=== PATIENT | male | born 1950 | race Caucasian/White ===

== ENCOUNTER 2016-05-07 06:04 | Inpatient (IN) ==
[2016-05-07] MEDS ORDERED: CeFAZolin Pre 2,000 MG/100 ML 2,000 MG/100 ML BAG IVPB ONE (06:22)
[2016-05-07] MEDS ORDERED: Ringers Solution, Lactated 1,000 ML IVC SCH (06:30)
--- NOTE | 2016-05-07 07:06 | Anesthesia Evaluation PreOp ---
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: CVA (mini stroke) Other Medical History: Renal (R renal atrophy) Anesthesia History: No Prior Anesthetic Complications Alcohol Use: rarely Drug use: none Medications and Allergies Allopurinol [Zyloprim 300 MG] 300 mg PO DAILY 07/16/15 [History] Cyanocobalamin (Vitamin B-12) [Vitamin B-12] 1,000 mcg PO DAILY 07/16/15 [ History] Cyclobenzaprine [Flexeril] 10 mg PO TID PRN 07/16/15 [History] Gabapentin [Neurontin] 800 mg PO BID 07/16/15 [History] Lisinopril [Zestril] 10 mg PO DAILY 07/16/15 [History] Meclizine [Antivert] 25 mg PO DAILY PRN 07/16/15 [History] Metoprolol Tartrate 100 mg PO BID 07/16/15 [History] Folic Acid 1 tab PO DAILY #30 tablet 11/21/15 [Rx] Rivaroxaban [Xarelto] 20 mg PO DAILY 03/05/16 [History] Aspirin [Lo-Dose Aspirin EC] 81 mg PO DAILY 04/16/16 [History] Gabapentin [Neurontin] 1,600 mg PO HS 04/30/16 [History] Potassium Chloride [K-Tab ER] 10 meq PO DAILY 04/30/16 [History] Allergies No Known Allergies Allergy (Verified 04/30/16 07:42) - Meds/Allergy Pre-op Review Medications Reviewed: Yes Allergies Reviewed: Yes Beta Blockers on Current Med List: Yes If Beta Blockers taken, Date/Time (Last Dose taken): 05-06-2016 metoprolol 23:00 Anesthesia Results - Labs Laboratory Tests 04/16/16 04/27/16 04/27/16 10:20 14:30 14:30 WBC 8.9 Hgb 11.8 L Hct 37.3 L Plt Count 288 Sodium 138 Potassium 4.1 Chloride 104 Carbon Dioxide 28 BUN 13 Creatinine 1.11 Est GFR ( Amer) > 60 Est GFR (Non-Af Amer) > 60 BUN/Creatinine Ratio 12 Calculated Osmolality 289 - Imaging EKG: report reviewed, image reviewed (atrial pacing) Additional studies: TTE: LVEF 55-60% no sign valvular disease Anesthesia Exam Last Vital Signs Temp 98.6 F 05/07/16 06:22 Pulse 70 05/07/16 06:22 Resp 18 05/07/16 06:22 BP 150/80 05/07/16 06:22 Pulse Ox 97 05/07/16 06:22 Weight: 112 kg NPO (# of Hours): >> 8 hrs - HEENT Pupil (Motor): Pupils equal, EOMI Mallampati: IV Teeth: Poor dentition Oral Opening: Greater than 3 - PAPER PRODUCTION ENGINEER LOC: Oriented PAPER PRODUCTION ENGINEER Motor: Normal RUE, Normal LUE, Normal RLE, Normal LLE, Normal Face - Cardiac Rhythm: Regular Murmur: None - Pulmonary Breath Sounds: bilateral Clear Respiratory Effort: Symmetrical Anesthesia Assess/Plan ASA Score: 3 Modified Jose E Scale for Level of Consciousness: Cooperative, oriented, and tranquil Anesthetic Plan: MAC Monitoring Plan: Standard Monitors Recovery Plan: PACU
[2016-05-07] MEDS ORDERED: Lidocaine -MPF 2% 2 ML VIAL ONE (07:13)
[2016-05-07] MEDS ORDERED: Propofol 500 MG/50 ML INFUS..BTL ONE (07:13)
[2016-05-07] MEDS ORDERED: *HR* FentaNYL (PF) 100 MCG/2 ML VIAL ONE (07:13)
[2016-05-07] MEDS ORDERED: *HR* Midazolam HCl 2 MG/2 ML VIAL ONE (07:13)
--- NOTE | 2016-05-07 07:18 | History & Physical Report ---
Date of Encounter: 05/07/16 Time of Encounter: 07:17 24 Hour HP Update - Instructions Instructions: If the History and Physical is less than 30 days old and was completed prior to A.M. admission and or procedure and has NOT been updated on calendar day of procedure please complete this update prior to performing procedure. - Update Patient reports changes in Medical Condition: No Changes in assessment/condition: No Changes in Medication: No Preop tests/diagnostics Reviewed: No Pre-Op MRSA Screen: Negative Surgery Remains Indicated: Yes Consent for Planned Operative Procedure(s) Verified: Yes
[2016-05-07] MEDS ORDERED: Lidocaine 1% 20 ML MDV ID ONE (07:20)
[2016-05-07] MEDS ORDERED: Bupivacaine/Clonidine Syringe 1 EACH SYRINGE ONE (07:29)
[2016-05-07] MEDS ORDERED: Lidocaine 1% 20 ML MDV ONE (07:48)
[2016-05-07] MEDS ORDERED: Neosporin OINT 15 GM TUBE TP ONE (09:02)
[2016-05-07] MEDS: Gabapentin 400 MG CAPSULE PO SCH ×3 (11:28→22:38)
[2016-05-07] MEDS: *HR* Rivaroxaban 10 MG TABLET PO SCH (11:29)
[2016-05-07] MEDS: Metoprolol 100 MG TABLET PO SCH ×2 (11:29→22:36)
[2016-05-07] MEDS: Aspirin Enteric Coated 81 MG Tablet PO SCH (11:29)
[2016-05-07] MEDS: Cyanocobalamin (B-12) 1,000 MCG TABLET PO SCH (11:29)
--- NOTE | 2016-05-07 11:34 | Anesthesia Evaluation Post Op ---
Date of Encounter: 05/07/16 Time of Encounter: 09:30 - Vital Signs Vital Signs: Last Vital Signs Temp 97.6 F 05/07/16 10:45 Pulse 70 05/07/16 11:30 Resp 16 05/07/16 11:30 BP 167/98 05/07/16 11:30 Pulse Ox 100 05/07/16 11:30 - Lungs Lungs: Clear Ascult./Percussion - Airway Airway: Non-obstructed - Cardiovascular Regular Rate, Baseline Rhythm - Mental Status Mental Status: Alert & Oriented, Answers Appropriately - Pain Pain Scale: 1 - Nausea Vomiting Nausea Vomiting: Not Present - Hydration Hydration: NPO - Discharge PostOp Status: Transfer Patient to floor
--- NOTE | 2016-05-07 17:06 | Orthopedic Operative Note ---
Date of procedure: 05/07/16 Pre-op diagnosis: #1 hammertoe deformity #2 left foot. No deformity of metatarsal #2 left Post-op diagnosis: same Procedure: 05/07/16 17:05 #1 correction of hammertoe with external fixation/K wire #2 left foot #2 metatarsal osteotomy/completed resection #2 metatarsal left foot Implants: #1:0.62 smooth K wire Complications: None Anesthesia: MAC, local Local Anesthetics: 0.25% Sensorcaine HCL SubQ (cc) Surgeon: Tomas Garcia Estimated blood loss (cc): 5 Tourniquet Time (Minutes): 0 Specimen: Bone fragments Condition: stable Disposition: floor Procedure in Detail: 05/07/16 17:06 Indications for and Details in summary the procedure: Mr. Garcia has been afflicted with a persistent chronic foot ulcer beneath the second metatarsal left foot for several years with exhaustive conservative therapy to no avail. This is been complicated by a rigid hammertoe and prominent second metatarsal. We have discussed the risks versus the benefits as well as alternatives to surgical intervention in detail. Risks include but not limited to infection, bleeding, pain, need for further surgery, DVT, blood clots, complications from blood clots, failure of procedure to produce desired results. Patient able to has questions about planned procedure those questions are answered to satisfaction. Patient was brought to the surgical suite. A sign in procedure was performed. Patient was transferred to the surgical table and positioned properly safely and securely. The left foot was elevated on a foam block. No tourniquet was used. Anesthetic timeout taken. Left ankle was prepped with alcohol 3 times in a modified ankle block carried out without difficulty or complication. The left foot was then prepped and draped in usual sterile manner. Surgical timeout was taken. A standard dorsal linear incision was carried out beginning at the middle phalanx brought midline across the proximal phalangeal joint to the level of the MTPJ and then obliquely lazy S fashion and then onto, the second metatarsal distally. Continued sharp dissection down to the metatarsophalangeal joint where a transverse capsulotomy was carried out. It was noted that the second toe/base of proximal phalanx was dorsally dislocated and overriding the distal aspect of the second metatarsal. After meticulous dissection of the soft tissue away from the distal aspect of the second metatarsal osteotomy was performed dorsal to plantar. Attempts to remove the distal aspect of the second metatarsal proved fruitless because of the base of proximal phalanx was unable to be mobilized adequately. At that juncture the base of proximal phalanx was resected dorsal plantar fashion we then resected the distal aspect of the second distal metatarsal without difficulty or complication. The wound was flushed with copious amounts sterile saline. The head of the proximal phalanx was then resected dorsal plantar fashion. That juncture2 K wire was driven through the middle and distal phalanx exiting the distal pulp of the toe it was then retrograded through the proximal phalanx and purchased and driven into the distal aspect of second metatarsal. Prior to pinning all osseous surfaces were palpated and found to be smooth without irregularities. Finding no bone chips or debris, the bone was then closed in routine fashion. The capsular structures were closed with 3-0 Vicryl subcutaneous tissue 3-0 Vicryl and skin repaired with 3-0 Prolene the pin was bent and cut appropriate angles. Capillary refill time is less than 3 seconds after completion of the procedure. Before closure the wound was sprayed with PRP. Wound was dressed with Adaptic 4 x 4's and Kerlix. Patient tolerated the procedure well was sent holding room in good condition with vital signs stable and then proceeding to the floor for further intravenous antibiotics and anticoagulant therapy postoperatively. Patient will need several weeks of postoperative rehabilitation.
[2016-05-08] MEDS: ceFAZolin 1,000 MG in D5% in Water (Mini-Bag+) 100 ML IVPB SCH ×3 (00:49→15:54)
[2016-05-08] MEDS: *HR* Rivaroxaban 10 MG TABLET PO SCH (07:47)
[2016-05-08] MEDS: Cyanocobalamin (B-12) 1,000 MCG TABLET PO SCH (07:47)
[2016-05-08] MEDS: Metoprolol 100 MG TABLET PO SCH ×2 (07:47→22:24)
[2016-05-08] MEDS: Aspirin Enteric Coated 81 MG Tablet PO SCH (07:47)
[2016-05-08] MEDS: Folic Acid 1 MG TABLET PO SCH (07:47)
[2016-05-08] MEDS: Gabapentin 400 MG CAPSULE PO SCH ×3 (07:48→22:25)
--- NOTE | 2016-05-08 13:25 | Podiatry Progress Note ---
Date of Encounter: 05/07/16 Time of Encounter: 11:00 - Assessment and Plan (1) Hammertoe of second toe of left foot Current Visit: Yes Status: Acute Dressing removed and site assessed Dressing saturated with serosang fluid to dorsal aspect. No acute drainage noted at this time Incision line intact without clinical signs of infection Cleansed with saline- betadine applied to dry slight maceration bulk 4x4 placed sub metatarsal heads to allow for proper alignment of toes during ambulation adaptic, 4x4 and kerlex applied to surgical site Patient to wear CAM boot when out of bed Patient may go to [facility] today when able to obtain placement SW to determine placement Patient will follow up in clinic in [address] Garcia or twist tester Please call with any fevers, chills, n/v or flu like symptoms Order for norco 5/325 as needed every 6 hours for pain control. (2) Foot ulcer Current Visit: Yes Status: Acute Qualifiers: Laterality: left Non-pressure ulcer stage: unspecified non-pressure ulcer stage Qualified Code(s): L97.529 - Non-pressure chronic ulcer of other part of left foot with unspecified severity Subjective Interval history: Patient day one post op #1 correction of hammertoe with external fixation/K wire #2 left foot #2 metatarsal osteotomy/completed resection #2 metatarsal left foot. Patient resting comfortably in bed at this time. Denies any issues. States he has occasional pain and pain to arch of foot when wearing boot. States he was up to the chair for a while this morning. Denies any fevers chills n/v or flu like symptoms. Denies any calf pain Objective - Vital Signs Vital Signs: Vital Signs Temp Pulse Resp BP Pulse Ox 05/08/16 11:01 98.2 F 70 20 150/87 97 05/08/16 06:41 98.3 F 70 20 143/85 93 L 05/08/16 04:00 99.2 F 76 18 162/77 95 05/08/16 00:00 98.7 F 70 18 178/90 96 05/07/16 20:28 97.6 F 70 17 165/85 95 05/07/16 15:16 98.3 F 74 16 147/85 99 Intake and Output 05/07/16 05/08/16 05/08/16 23:59 07:59 15:59 Intake Total 300 / 300 550 / 550 240 / 240 Output Total 275 / 275 250 / 250 350 / 350 Balance 25 / 25 300 / 300 -110 / -110 Intake: IV Fluids 100 / 100 Ancef 1,000 MG In 100 / 100 Dextrose 5% (Minibag+) 100 ML 100 ML @ 200 mls/ hr IVPB Q8HR [facility] Rx#: [id number] Oral 300 / 300 450 / 450 240 / 240 Output: Urine 275 / 275 250 / 250 350 / 350 Other: Meal Breakfast Percent of Meal Consumed 100% # Voids 1 - Exam Exam: Podiatry General Exam: General appearance: alert awake oriented X 3. Calm and pleasant, no acute distress.. Vascular: Pedal pulses +1/4 DP/PT , No evidence of cyanosis, pallor or rubor, Edema graded at 1+/4, Skin Temperature warm, No calf pain with manual compression. capillary refill time is immediate to digits. Neurologic: Sensation intact with moderate touch to foot. . Patient has neuropathic pain complaints Postop Exam: S/P Hemmertoe correction toe #2 left foot toe #1 has been surgically amputated Sutures intact to incision line, no signs of dehiscence.Mild amount of maceration surrounding surgical line. No open area, scant sero sang drainage, no odor, mild erythema, no streaking. Minimal edema. No pain with palpation. Cap refill <3 seconds. - VTE Reasons for not Prescribing Prophylaxis: Not indicated-Anticoagulated or INR therapeutic Documentation of Mechanical Device: Intermittent pneumatic compression device Consult Discharge Plan - Plan Referrals: Katarina Georges DO [Primary Care Provider] -
--- NOTE | 2016-05-08 13:38 | Physician Discharge Referral ---
ExtendedCare Referral Info Transfer To: [facility] Provider in Charge: Radha Provider in Charge after Transfer: PCP Institutional Level of Care: Skilled - Diagnosis (1) Foot ulcer Status: Acute Expected Duration of Placement: 3 weeks Prognosis: Good Aware of Diagnosis: Patient Aware of Prognosis: Patient - Transfer Medications Home Medications: Allopurinol [Zyloprim 300 MG] 300 mg PO DAILY 07/16/15 [History] Cyanocobalamin (Vitamin B-12) [Vitamin B-12] 1,000 mcg PO DAILY 07/16/15 [ History] Cyclobenzaprine [Flexeril] 10 mg PO TID PRN 07/16/15 [History] Gabapentin [Neurontin] 800 mg PO BID 07/16/15 [History] Lisinopril [Zestril] 10 mg PO DAILY 07/16/15 [History] Meclizine [Antivert] 25 mg PO DAILY PRN 07/16/15 [History] Metoprolol Tartrate 100 mg PO BID 07/16/15 [History] Folic Acid 1 tab PO DAILY #30 tablet 11/21/15 [Rx] Rivaroxaban [Xarelto] 20 mg PO DAILY 03/05/16 [History] Aspirin [Lo-Dose Aspirin EC] 81 mg PO DAILY 04/16/16 [History] Gabapentin [Neurontin] 1,600 mg PO HS 04/30/16 [History] Potassium Chloride [K-Tab ER] 10 meq PO DAILY 04/30/16 [History] Allergies/Adverse Reactions: Allergies No Known Allergies Allergy (Verified 04/30/16 07:42) - Respiratory Orders Smoking Cessation: Smoking cessation has been advised. For more information, call the [place] Tobacco Quit Line at 4-818-ZJBQ-NOW. - Mobility Orders Ambulate - Rehabiliation Orders Rehab Potential: Fair Rehab Orders: Evaluation for Physical Therapy, Evaluation for Occupational Therapy - Treatments List/Other: Cleanse surgical wound with soap and water daily apply betadine to pin and incision cover/dress with adaptic 4x4 and Kerlix daily Use cast boot to ambulate at all time. - Diet Orders Regular CERTIFICATION: I certify that the transfer of the above named patient to an Extended Care Facility is necessary for the continuing treatment of the diagnosis listed. The above information is true and accurate reflection of patient's current condition. Confidential - Redisclosure prohibited without a patient's written consent.
--- NOTE | 2016-05-08 15:28 | Discharge Summary ---
Date of Encounter: 05/08/16 Time of Encounter: 14:15 - Discharge Diagnosis (1) Hammertoe of second toe of left foot Priority: Primary Status: Acute (2) Foot ulcer Priority: Primary Status: Acute Qualifiers: Laterality: left Non-pressure ulcer stage: unspecified non-pressure ulcer stage Qualified Code(s): L97.529 - Non-pressure chronic ulcer of other part of left foot with unspecified severity - Discharge Medications Prescriptions: HYDROcodone/Acet 5/325 mg [[place] 5-325 mg] 1 tab PO Q6HR PRN #30 tablet PRN Reason: Breakthrough Pain Home Medications: Allopurinol [Zyloprim 300 MG] 300 mg PO DAILY 07/16/15 [History] Cyanocobalamin (Vitamin B-12) [Vitamin B-12] 1,000 mcg PO DAILY 07/16/15 [ History] Cyclobenzaprine [Flexeril] 10 mg PO TID PRN 07/16/15 [History] Gabapentin [Neurontin] 800 mg PO BID 07/16/15 [History] Lisinopril [Zestril] 10 mg PO DAILY 07/16/15 [History] Meclizine [Antivert] 25 mg PO DAILY PRN 07/16/15 [History] Metoprolol Tartrate 100 mg PO BID 07/16/15 [History] Folic Acid 1 tab PO DAILY #30 tablet 11/21/15 [Rx] Rivaroxaban [Xarelto] 20 mg PO DAILY 03/05/16 [History] Aspirin [Lo-Dose Aspirin EC] 81 mg PO DAILY 04/16/16 [History] Gabapentin [Neurontin] 1,600 mg PO HS 04/30/16 [History] Potassium Chloride [K-Tab ER] 10 meq PO DAILY 04/30/16 [History] Aspirin Enteric Coated [Aspirin EC] 81 mg PO DAILY tablet. 05/08/16 [Rx] HYDROcodone/Acet 5/325 mg [[place] 5-325 mg] 1 tab PO Q6HR PRN #30 tablet [Rx] Allergies/Adverse Reactions: Allergies No Known Allergies Allergy (Verified 04/30/16 07:42) Procedures and tests throughout hospitalization: #1 correction of hammertoe with external fixation/K wire #2 left foot #2 metatarsal osteotomy/completed resection #2 metatarsal left foot on 05/08/2016 per - Impressions ITS Impressions Fluoroscopy 05/07/16 08:48 IMPRESSION: Intraprocedural fluoroscopic spot images as above. See separate procedure report for more information. D/ / Jack Osorio MD / Jack Osorio MD Interpreting Provider: Jack Osorio MD Foot X-Ray 05/07/16 09:49 IMPRESSION: Postsurgical changes from partial resection osteotomy of the 2nd metatarsal and 2nd proximal phalanx with pinning of the 2nd metatarsal through the distal phalanx. No radiographic evidence of acute complication. D/ / 05/07/2016 10:38:55 Fannie Harris MD / jailyn Interpreting Provider: Fannie Harris MD Date of admission: 05/07/16 10:22 Primary care physician: Teena Lutz Consults: 05/07/16 13:06 Consult to Event Set Up Specialist [CONS] Routine Reason for SW Consult: [facility] 05/07/16 13:39 Consult to Physical Therapy [CONS] Routine Comment: WB JACIEL WITH TALL CAST BOOT FOR STABILIZATION OT [Consult to Occupational Therapy] [CONS] Routine Comment: WB JACIEL WITH TALL CAST BOOT FOR STABILAZTION Discharging clinician: Katarina Reed Anticipated date of discharge: 05/08/16 - Patient Status Disposition: Transfer SNF Condition: Good Functional capacity at discharge: uses cane/walker Overall status at discharge: patient is progressing back to baseline - Discharge Instructions Follow Up With: Tomas Renee [Non-Partnered Physician] - 05/13/16 8:30 am (IN [facility]ARE [facility] ) Additional Instructions: Take medications as prescribed. Go to scheduled follow-up appointment. Wear tall boot with ambulation. Keep dressing CDI. To be changed daily per ECF, cleansed with soap and water, apply betadine to surgical line and pins, adaptic to surgical site, 4x4 and kerlex. CAM boot with ambulation. Call with any fevers , chills, n/v or flu like symptoms. Call with any calf pain or SOB. Will see in 1 week. - Diet and Activity Activity: other (Only with CAM boot in place ) Diet: advance to your usual diet - Hospital Course Hospital course: Mr. Garcia is a 66 year old male who was brought to OR related to non healing ulceration to MT head #1 of left foot and hammertoe deformity of toe #2. Patient was taken to OR per on 05/07/16 #1 correction of hammertoe with external fixation/K wire #2 left foot #2 metatarsal osteotomy/completed resection #2 metatarsal left foot. Patient was then placed to [facility] for overnight stay and will be placed to ECF for 3 weeks. Patient was assessed today per HYDRAULIC CORRUGATING MACHINE OPERATOR at bedside with dressing change and site check. Patient has been up to chair and tolerating diet without issue. Patient to have daily dressing changes with betadine to surgical site and pin with application of adaptic 4x4 and kerlex to foot. Patient to ambulate with only CAM boot. Stay was uneventful. Hemodynamically stable. No concern for infection. Patient awake alert and oriented and expresses that he is ready to be discharged. Patient in good condition and ready to be discharged to ECF. Patient is to follow up with PCP and in office in 1 week. Patient provided with prescription for pain, norco 5/325 Q6H PRN for pain, 30 tablets. OAR[facility] reviewed prior, no active orders. ITS Impressions Fluoroscopy 05/07/16 08:48 IMPRESSION: Intraprocedural fluoroscopic spot images as above. See separate procedure report for more information. D/ / Jack Osorio MD / Jack Osorio MD Interpreting Provider: Jack Osorio MD Foot X-Ray 05/07/16 09:49 IMPRESSION: Postsurgical changes from partial resection osteotomy of the 2nd metatarsal and 2nd proximal phalanx with pinning of the 2nd metatarsal through the distal phalanx. No radiographic evidence of acute complication. D/ / 05/07/2016 10:38:55 Fannie Harris MD / jailyn Interpreting Provider: Fannie Harris MD Time spent discussing smoking cessation with patient: 3 to 10 minutes - Time Spent with Patient Total time spent providing and/or coordinating discharge services: Less than 30 minutes Specific discharge activities: Ambulate with CAM boot - VTE Reasons for not Prescribing Prophylaxis: Not indicated-Anticoagulated or INR therapeutic Documentation of Mechanical Device: Intermittent pneumatic compression device
[2016-05-08] MEDS: *HR* HYDROcodone/Acet 5/325 mg TABLET PO PRN ×2 (16:03→22:24)
[2016-05-09] MEDS: Folic Acid 1 MG TABLET PO SCH (09:42)
[2016-05-09] MEDS: *HR* Rivaroxaban 10 MG TABLET PO SCH (09:42)
[2016-05-09] MEDS: Aspirin Enteric Coated 81 MG Tablet PO SCH (09:42)
[2016-05-09] MEDS: Cyanocobalamin (B-12) 1,000 MCG TABLET PO SCH (09:42)
[2016-05-09] MEDS: Metoprolol 100 MG TABLET PO SCH ×2 (09:42→20:12)
[2016-05-09] MEDS: Gabapentin 400 MG CAPSULE PO SCH ×3 (09:43→20:12)
[2016-05-09] MEDS: *HR* HYDROcodone/Acet 5/325 mg TABLET PO PRN (12:23)
[2016-05-09] MEDS ORDERED: Metoprolol 100 MG TABLET PO ONE (13:37)
[2016-05-10] MEDS: Cyanocobalamin (B-12) 1,000 MCG TABLET PO SCH (08:49)
[2016-05-10] MEDS: Folic Acid 1 MG TABLET PO SCH (08:49)
[2016-05-10] MEDS: Gabapentin 400 MG CAPSULE PO SCH ×3 (08:49→20:02)
[2016-05-10] MEDS: *HR* Rivaroxaban 10 MG TABLET PO SCH (08:49)
[2016-05-10] MEDS: Metoprolol 100 MG TABLET PO SCH ×2 (08:49→20:02)
[2016-05-10] MEDS: Aspirin Enteric Coated 81 MG Tablet PO SCH (08:49)
--- NOTE | 2016-05-10 09:40 | Podiatry Progress Note ---
Date of Encounter: 05/09/16 Time of Encounter: 20:39 - Assessment and Plan (1) Hammertoe of second toe of left foot Current Visit: Yes Status: Acute No acute drainage noted at this time. Incision line intact without clinical signs of infection. Patient to wear CAM boot when out of bed. Patient may go to [facility] soon when able to obtain placement. Patient will follow up in clinic in [address] Garcia or drone operator. Please call with any fevers, chills, n/v or flu like symptoms. Subjective Principal diagnosis: Hammertoe, ulcer Interval history: Patient relates that he is feeling much better. Patient denies any new pedal complaints. Patient relates that he is ready for discharge. Patient relates that he has tried to not put any pressure on the site. Objective - Vital Signs Vital Signs: Vital Signs Temp Pulse Resp BP Pulse Ox 05/10/16 06:37 97.8 F 68 18 158/71 98 05/10/16 05:17 98.0 F 68 18 187/109 97 05/10/16 00:00 97.5 F L 69 16 165/84 97 05/09/16 19:30 98.0 F 70 18 152/80 96 05/09/16 17:18 98.1 F 70 171/95 05/09/16 13:30 182/92 05/09/16 11:25 97.5 F L 70 18 180/85 99 Intake and Output 05/09/16 05/10/16 05/10/16 23:59 07:59 15:59 Intake Total 370 / 370 300 / 300 240 / 240 Output Total 600 / 600 875 / 875 Balance -230 / -230 -575 / -575 240 / 240 Intake: Oral 370 / 370 300 / 300 240 / 240 Output: Urine 600 / 600 875 / 875 Other: Meal Dinner Breakfast Percent of Meal Consumed 80% 100% # Voids 1 Weight 125.7 kg Patient Weight 05/10/16 23:59 Weight 125.7 kg - Exam Exam: No strikethrough noted on dressing. Pedal pulses palpable. Capillary fill time intact to remaining digits. Sensation decreased consistent with peripheral neuropathy. No no open lesions, abrasions, or ulcerations. The patient is awake, alert, and oriented 3 and appears to be in no acute distress. - VTE Reasons for not Prescribing Prophylaxis: Not indicated-Anticoagulated or INR therapeutic Documentation of Mechanical Device: Intermittent pneumatic compression device Consult Discharge Plan - Plan Additional Instructions: Take medications as prescribed. Go to scheduled follow-up appointment. Wear tall boot with ambulation. Keep dressing CDI. To be changed daily per ECF, cleansed with soap and water, apply betadine to surgical line and pins, adaptic to surgical site, 4x4 and kerlex. CAM boot with ambulation. Call with any fevers , chills, n/v or flu like symptoms. Call with any calf pain or SOB. Will see in 1 week. Referrals: Tomas Renee [Non-Partnered Physician] - 05/13/16 8:30 am (IN [facility]ARE CLINIC ) Prescriptions: HYDROcodone/Acet 5/325 mg [[place] 5-325 mg] 1 tab PO Q6HR PRN #30 tablet PRN Reason: Breakthrough Pain
[2016-05-10] MEDS ORDERED: Acetaminophen 325 MG TABLET PO PRN (20:49)
[2016-05-10] MEDS: *HR* HYDROcodone/Acet 5/325 mg TABLET PO PRN (21:24)
[2016-05-11] MEDS: Gabapentin 400 MG CAPSULE PO SCH ×2 (07:39→11:38)
[2016-05-11] MEDS: Metoprolol 100 MG TABLET PO SCH (07:39)
[2016-05-11] MEDS: Aspirin Enteric Coated 81 MG Tablet PO SCH (07:40)
[2016-05-11] MEDS: *HR* Rivaroxaban 10 MG TABLET PO SCH (07:40)
[2016-05-11] MEDS: Cyanocobalamin (B-12) 1,000 MCG TABLET PO SCH (07:40)
[2016-05-11] MEDS: Folic Acid 1 MG TABLET PO SCH (07:40)
--- NOTE | 2016-05-11 07:50 | Podiatry Progress Note ---
Date of Encounter: 05/10/16 Time of Encounter: 21:48 - Assessment and Plan (1) Hammertoe of second toe of left foot Current Visit: Yes Status: Acute No acute drainage noted at this time. Incision line intact without clinical signs of infection. Patient to wear CAM boot when out of bed. Patient may go to [facility] soon when able to obtain placement. Patient will follow up in clinic in [address] Garcia or dispatch manager. Please call with any fevers, chills, n/v or flu like symptoms. Patient was concerned about using narcotic pain medication and was written for IV acetaminophen when necessary for his pain. Subjective Principal diagnosis: Hammertoe, ulcer Interval history: Patient relates significant pain in his legs. Patient relates that he has difficult sleeping as a result of the tingling and burning sensation in both of his legs. Patient relates that this is a frequent sensation. Patient relates that Neurontin typically helps. Objective - Vital Signs Vital Signs: Vital Signs Temp Pulse Resp BP Pulse Ox 05/11/16 06:52 98.2 F 85 17 160/73 100 05/11/16 03:34 98.0 F 69 18 166/94 96 05/11/16 00:05 98.1 F 70 16 177/95 97 05/10/16 21:01 199/96 05/10/16 19:46 98.5 F 70 18 193/97 94 05/10/16 15:26 97.7 F 70 18 136/74 97 05/10/16 10:34 97.8 F 70 18 133/62 97 Intake and Output 05/10/16 05/10/16 05/11/16 15:59 23:59 07:59 Intake Total 840 / 840 480 / 480 1000 / 1000 Output Total 900 / 900 0 / 0 0 / 0 Balance -60 / -60 480 / 480 1000 / 1000 Intake: Oral 840 / 840 480 / 480 1000 / 1000 Output: Urine 900 / 900 0 / 0 0 / 0 Other: Meal Lunch Dinner Percent of Meal Consumed 90% 100% # Voids 1 Weight 125.7 kg Patient Weight 05/11/16 23:59 Weight 125.7 kg - Exam Exam: No strikethrough noted, the dressing is intact. No no open lesions, abrasions, or ulcerations. Capillary fill time intact. Sensation decreased consistent with peripheral neuropathy. Hypersensitivity noted to bilateral legs. - VTE Reasons for not Prescribing Prophylaxis: Not indicated-Anticoagulated or INR therapeutic Documentation of Mechanical Device: Intermittent pneumatic compression device Consult Discharge Plan - Plan Additional Instructions: Take medications as prescribed. Go to scheduled follow-up appointment. Wear tall boot with ambulation. Keep dressing CDI. To be changed daily per ECF, cleansed with soap and water, apply betadine to surgical line and pins, adaptic to surgical site, 4x4 and kerlex. CAM boot with ambulation. Call with any fevers , chills, n/v or flu like symptoms. Call with any calf pain or SOB. Will see in 1 week. Referrals: Tomas Renee [Non-Partnered Physician] - 05/13/16 8:30 am (IN [facility] ) Prescriptions: HYDROcodone/Acet 5/325 mg [[place] 5-325 mg] 1 tab PO Q6HR PRN #30 tablet PRN Reason: Breakthrough Pain
[2016-05-11 11:16] VITALS: BP 147/78
--- NOTE | 2016-05-11 11:32 | Podiatry Progress Note ---
Date of Encounter: 05/11/16 Time of Encounter: 11:10 - Assessment and Plan (1) Hammertoe of second toe of left foot Status: Acute Plan is for patient to be discharged to [facility] once accepted. Most likely today. Dressing changed at bedside today, localized erythema with scant amount of bloody drainage. Will obtain xrays of left foot prior to discharge. Daily dressing changes to include cleansing incision site with mild soap and water, pat dry, apply betadine with adaptic, 4x4 dry sterile gauze and kerlix. Wear cam boot when out of bed and remain non weight bearing to forefoot. F/u in Podiatry clinic with in one week of discharge from hospital. (2) Foot ulcer Status: Acute Qualifiers: Laterality: left Non-pressure ulcer stage: unspecified non-pressure ulcer stage Qualified Code(s): L97.529 - Non-pressure chronic ulcer of other part of left foot with unspecified severity Subjective Principal diagnosis: Hammertoe, ulcer Interval history: Patient is s/p correction of hammertoe with external fixation/k wire #2 left foot. metatarsal osteotomy completed resection #2 metatarsal left foot by Dr. Garcia on 05/07/16. Patient is lying in bed with dressing intact to left foot, scant amount of bloody drainage observed to dressing. Patient rates left foot pain at a 6 out of 10. No c/o fever, chills, cp, sob, or calf pain. Patient states he walked to the bathroom without his boot on. Objective - Vital Signs Vital Signs: Vital Signs Temp Pulse Resp BP Pulse Ox 05/11/16 11:15 98.4 F 70 20 147/78 05/11/16 06:52 98.2 F 85 17 160/73 100 05/11/16 03:34 98.0 F 69 18 166/94 96 05/11/16 00:05 98.1 F 70 16 177/95 97 05/10/16 21:01 199/96 05/10/16 19:46 98.5 F 70 18 193/97 94 05/10/16 15:26 97.7 F 70 18 136/74 97 Intake and Output 05/10/16 05/11/16 05/11/16 23:59 07:59 15:59 Intake Total 480 / 480 1000 / 1000 240 / 240 Output Total 0 / 0 0 / 0 0 / 0 Balance 480 / 480 1000 / 1000 240 / 240 Intake: Oral 480 / 480 1000 / 1000 240 / 240 Output: Urine 0 / 0 0 / 0 0 / 0 Other: Meal Dinner Breakfast Percent of Meal Consumed 100% 75% # Voids 1 Weight 125.7 kg Patient Weight 05/11/16 23:59 Weight 125.7 kg - Exam Exam: Podiatry General Exam: General appearance: alert awake oriented X 3. Calm and pleasant, no acute distress.. Vascular: Left foot: Pedal pulses +1/4 DP/PT , No evidence of cyanosis, pallor or rubor, Edema graded at 1+/4, Skin Tempature warm, No calf pain with manual compression. capillary refill time is immediate to digits. Neurologic: Sensation intact with light touch to foot. . Postop Exam: S/P Sutures intact to incision line with k-wire, no signs of dehiscence. Scant amount of bloody drainage with localized erythema to toe #2 left foot with Minimal edema. No ascending cellulitis, no lymphangitis, no purulent drainage, no warmth. - VTE Reasons for not Prescribing Prophylaxis: Not indicated-Anticoagulated or INR therapeutic Documentation of Mechanical Device: Intermittent pneumatic compression device Consult Discharge Plan - Plan Additional Instructions: Take medications as prescribed. Go to scheduled follow-up appointment. Wear tall boot with ambulation. Keep dressing CDI. To be changed daily per ECF, cleansed with soap and water, apply betadine to surgical line and pins, adaptic to surgical site, 4x4 and kerlex. CAM boot with ambulation. Call with any fevers , chills, n/v or flu like symptoms. Call with any calf pain or SOB. Will see in 1 week. Referrals: Tomas Renee [Non-Partnered Physician] - 05/13/16 8:30 am (IN [facility] ) Prescriptions: HYDROcodone/Acet 5/325 mg [Kevin 5-325 mg] 1 tab PO Q6HR PRN #30 tablet PRN Reason: Breakthrough Pain
== END 2016-05-11 13:39 | DRG 314 ==
LOC: SAMDAY 06:04 → 3NENU 10:22 → 3ANU 05-08 17:26
PROVIDERS: ADMIT Podiatrist Foot Surgery; ATTEND Podiatrist Foot Surgery

== ENCOUNTER 2018-09-17 10:03 | Inpatient (IN) ==
[2018-09-17] MEDS ORDERED: Octreotide 50 MCG/ML INJ IVP ONE (10:08)
[2018-09-17] MEDS ORDERED: Pantoprazole 80 MG in 0.9 % Sodium Chloride 50 ML IVPB ONE (10:08)
--- NOTE | 2018-09-17 10:16 | Emergency Department Note ---
Disposition Clinical Impression: Caput medusae, Supratherapeutic INR Hematemesis Qualifiers: Nausea presence: unspecified Qualified Code(s): K92.0 - Hematemesis Disposition: Admitted As Inpatient Condition: Serious Referrals: Per Arreola [Primary Care Provider] - Forms: ED Satisfaction Letter Time of Disposition: 14:57 General Adult HPI - General Stated complaint: Throwing up blood Time Seen by Provider: 09/17/18 10:07 Source: patient, EMS Mode of arrival: EMS Limitations: no limitations Nursing Notes Reviewed: Yes Vital Signs Reviewed: Yes - History of Present Illness HPI Narrative: Patient is a 68-year-old male that presents emergency Department with reports of vomiting blood since 0 3:30 this morning. Patient states that he has never had anything like this before. Patient denies any history of alcoholism or liver dysfunction. Patient states that he woke up this morning and had been vomiting blood multiple times. EMS stated that there is a significant amount of blood in the bathroom. Patient states that he has felt lightheaded and dizzy. Patient also reports some shortness of breath denies any chest pain. Patient states that he has never been told that he has varices. Patient does state that he is on Coumadin for history of blood clots in his legs. Pain Scale: 0 - Related Data Home Medications Medication Instructions Recorded Confirmed Allopurinol [Zyloprim 300 MG] 300 mg PO DAILY 07/16/15 09/17/18 Cyanocobalamin (Vitamin B-12) 1,000 mcg PO DAILY 03/07/18 09/17/18 [Vitamin B-12] Amlodipine Besylate 5 mg PO DAILY 06/23/18 09/17/18 Duloxetine HCl [Cymbalta] 60 mg PO DAILY 06/23/18 09/17/18 Gabapentin 600 mg PO TID 06/23/18 09/17/18 Metoprolol Succinate [Toprol Xl] 25 mg PO DAILY 06/23/18 09/17/18 Meclizine [Antivert] 25 mg PO BID PRN 07/26/18 09/17/18 Warfarin [Coumadin] 5 mg PO DAILY 07/26/18 09/17/18 Allergies Allergy/AdvReac Type Severity Reaction Status Date / Time No Known Allergies Allergy Verified 07/26/18 14:35 All systems ED: reviewed and negative except as stated. Constitutional: Denies: fever Cardiovascular: Denies: chest pain Respiratory: Reports: dyspnea Gastrointestinal: Reports: nausea, vomiting, hematemesis. Denies: abdominal pain Neurological: Reports: other (Dizziness ). Denies: weakness, numbness, paresthesias Past Medical History - Past Medical History Medical history: Reports: CVA, DVT, hyperlipidemia, hypertension, TIA, other Surgical history: Reports: breast surgery, cholecystectomy, orthopedic, other, pacemaker Psychiatric history: Reports: no psych history - Social History Smoking Status: Former smoker Smokeless Tobacco Status: No Alcohol use: Reports: none Drug use: Reports: none Physical Exam - General Limitations: no limitations General appearance: alert, in distress, other (Patient has blood in his mouth, his chest all the way down to his feet.) - Head Head exam: atraumatic, normocephalic - Eye Eye exam: Present: normal appearance, EOMI - ENT ENT exam: other (Patient has visible blood within the oropharynx.) - Neck Neck exam: Present: normal inspection, full ROM, trachea midline - Respiratory Respiratory exam: Present: normal lung sounds bilaterally. Absent: respiratory distress, wheezes - Cardiovascular Cardiovascular exam: Present: regular rate, normal rhythm, normal heart sounds, +S1, +S2 - Abdominal Exam Abdominal exam: Present: soft, Non-Tender, normal bowel sounds, other (Caput medusa on the abdomen ) - Neurological Exam Neurological exam: Present: alert, oriented X3 - Psychiatric Psychiatric exam: Present: normal affect, normal mood - Skin Skin exam: Present: warm, dry, intact Course Vital Signs Temperature 96.6 F L 09/17/18 10:05 Pulse Rate 86 09/17/18 10:05 Respiratory Rate 24 09/17/18 10:05 Blood Pressure 124/62 09/17/18 10:05 O2 Sat by Pulse Oximetry 100 09/17/18 10:05 Temperature 98.6 F 09/17/18 12:55 Pulse Rate 86 09/17/18 13:21 Respiratory Rate 20 09/17/18 13:21 Blood Pressure 144/61 09/17/18 13:21 O2 Sat by Pulse Oximetry 100 09/17/18 13:21 Oxygen Delivery Oxygen Delivery Room Air Medical Decision Making - MDM Narrative Medical decision making narrative: Due the patient's and into the emergency department with reports of a GI bleed and being covered in blood we will obtain basic laboratory testing CBC, BMP, type and screen, PT, PTT and an EKG. The patient be started on Protonix and octreotide. Dr. moreno was contacted immediately upon the patient's arrival. Spoke to Dr. Moreno at [phone] and he agreed to scope the patient. 2 units of O- were placed on standby. Due to the patient being on Coumadin we will monitor the patient's INR and treat appropriately if the INR is elevated. The patient will likely require admission to the ICU for further monitoring after his endoscopy. Patient had a hemoglobin of 9.1. Had an elevated white blood cell count. Patient a low calcium so 1 g of calcium gluconate was given. Patient also had an elevated INR of 9.9. Patient did receive PCC due to the patient having an active GI bleed with a supratherapeutic INR that was 9.9. This was relayed to the zipper setter lockstitch that was on-call Dr. Moreno. Patient will get endoscopy for a scope and has been accepted by the ICU attending for admission. Patient did receive 2 units of packed red blood cells. The patient's blood pressure has improved into the 140s. Patient will be taken to endoscopy and then to the ICU at this time. - Medical Records Medical records reviewed: Yes I reviewed the patient's medical records. - Lab Data Lab results reviewed: Yes I reviewed the patient's lab results. Result diagrams: 09/17/18 11:26 09/17/18 10:20 Lab Results 09/17/18 09/17/18 09/17/18 Range/Units 10:20 10:20 10:20 WBC (4.3-11.1) K/mcL RBC (4.19-5.50) M/mcL Hgb (12.9-16.9) g/dL Hct (37.5-50.1) % MCV (83.0-100.0) fL MCH (28.0-33.3) pg MCHC (31.6-35.5) g/dL RDW (11.5-14.5) % Plt Count (140-400) K/mcL MPV (9.4-12.4) fL Immature Gran % (0-4) % Seg Neutrophils % % Lymphocytes % % Monocytes % % Eosinophils % % Basophils % % Neutrophils # (1.6-8.9) K/mcL Lymphocytes # (0.6-4.6) K/mcL Monocytes # (0.0-1.3) K/mcL Eosinophils # (0.0-0.6) K/mcL Basophils # (0.0-0.2) K/mcL Nucleated RBCs/100 WBC (0) /100 WBC PT (9.4-12.1) Seconds INR APTT (26.0-36.0) Seconds Sodium 143 (136-145) mEq/L Potassium 4.4 (3.5-5.1) mEq/L Chloride 113 H (98-107) mEq/L Carbon Dioxide 13 L (23-29) mEq/L BUN 48 H (8-23) mg/dL Creatinine 1.67 H (0.70-1.30) mg/dL Est GFR ( Amer) 50 L (> 60) Est GFR (Non-Af Amer) 41 L (> 60) BUN/Creatinine Ratio 29 H (6-26) Glucose 219 H (70-105) mg/dL Calculated Osmolality 315 H (280-300) Calcium 6.7 L (8.6-10.3) mg/dL Troponin I < 0.03 (< 0.04) ng/mL Specimen Rejected Blood Type A POSITIVE Antibody Screen NEGATIVE Crossmatch See Detail 09/17/18 09/17/18 09/17/18 Range/Units 11:09 11:26 11:26 WBC 16.8 H (4.3-11.1) K/mcL RBC 3.31 L (4.19-5.50) M/mcL Hgb 9.1 L (12.9-16.9) g/dL Hct 30.0 L (37.5-50.1) % MCV 90.6 (83.0-100.0) fL MCH 27.5 L (28.0-33.3) pg MCHC 30.3 L (31.6-35.5) g/dL RDW 14.7 H (11.5-14.5) % Plt Count 357 (140-400) K/mcL MPV 9.3 L (9.4-12.4) fL Immature Gran % 2.1 (0-4) % Seg Neutrophils % 85.7 % Lymphocytes % 5.4 % Monocytes % 6.0 % Eosinophils % 0.4 % Basophils % 0.4 % Neutrophils # 14.4 H (1.6-8.9) K/mcL Lymphocytes # 0.9 (0.6-4.6) K/mcL Monocytes # 1.0 (0.0-1.3) K/mcL Eosinophils # 0.1 (0.0-0.6) K/mcL Basophils # 0.1 (0.0-0.2) K/mcL Nucleated RBCs/100 WBC 0.1 H (0) /100 WBC PT 113.2 H* (9.4-12.1) Seconds INR 9.9 H* APTT 82.9 H (26.0-36.0) Seconds Sodium (136-145) mEq/L Potassium (3.5-5.1) mEq/L Chloride (98-107) mEq/L Carbon Dioxide (23-29) mEq/L BUN (8-23) mg/dL Creatinine (0.70-1.30) mg/dL Est GFR ( Amer) (> 60) Est GFR (Non-Af Amer) (> 60) BUN/Creatinine Ratio (6-26) Glucose (70-105) mg/dL Calculated Osmolality (280-300) Calcium (8.6-10.3) mg/dL Troponin I (< 0.04) ng/mL Specimen Rejected MCV Delta Blood Type Antibody Screen Crossmatch 09/17/18 Range/Units 11:26 WBC (4.3-11.1) K/mcL RBC (4.19-5.50) M/mcL Hgb (12.9-16.9) g/dL Hct (37.5-50.1) % MCV (83.0-100.0) fL MCH (28.0-33.3) pg MCHC (31.6-35.5) g/dL RDW (11.5-14.5) % Plt Count (140-400) K/mcL MPV (9.4-12.4) fL Immature Gran % (0-4) % Seg Neutrophils % % Lymphocytes % % Monocytes % % Eosinophils % % Basophils % % Neutrophils # (1.6-8.9) K/mcL Lymphocytes # (0.6-4.6) K/mcL Monocytes # (0.0-1.3) K/mcL Eosinophils # (0.0-0.6) K/mcL Basophils # (0.0-0.2) K/mcL Nucleated RBCs/100 WBC (0) /100 WBC PT (9.4-12.1) Seconds INR APTT (26.0-36.0) Seconds Sodium (136-145) mEq/L Potassium (3.5-5.1) mEq/L Chloride (98-107) mEq/L Carbon Dioxide (23-29) mEq/L BUN (8-23) mg/dL Creatinine (0.70-1.30) mg/dL Est GFR ( Amer) (> 60) Est GFR (Non-Af Amer) (> 60) BUN/Creatinine Ratio (6-26) Glucose (70-105) mg/dL Calculated Osmolality (280-300) Calcium (8.6-10.3) mg/dL Troponin I (< 0.04) ng/mL Specimen Rejected Clotted Blood Type Antibody Screen Crossmatch - Radiology Data Radiology results reviewed: Yes I reviewed the patient's radiology results. Chest X-Ray 09/17/18 10:26 IMPRESSION: No evidence of acute cardiopulmonary disease. D/ / Huber Washburn MD / Huber Washburn MD Interpreting Provider: Huber Washburn MD - EKG Data EKG #1 EKG attestation: Yes I reviewed and interpreted this EKG. EKG results narrative: EKG shows a sinus rhythm at rate 85 bpm, [place] interval 149, QRS duration 94, QTc of 449. There is no evidence of STEMI on EKG. This is compared to previous EKG on 06/23/18. Attestation Statement - Attestation Attestation: Luther Santillan D.O., examined this patient and my medical decision-making was reviewed with the Resident Physician. I agree with the documented findings, disposition and treatment plan as described except to the extent set forth below.
[2018-09-17] MEDS ORDERED: Octreotide 400 MCG in 0.9 % Sodium Chloride 100 ML IVC SCH (10:30)
[2018-09-17] MEDS ORDERED: Pantoprazole 40 MG in 0.9 % Sodium Chloride Mini Bag 100 ML IVC SCH (10:30)
--- NOTE | 2018-09-17 10:33 | Emergency Department Note ---
Disposition Clinical Impression: Caput medusae, Supratherapeutic INR Hematemesis Qualifiers: Nausea presence: unspecified Qualified Code(s): K92.0 - Hematemesis Disposition: Admitted As Inpatient Condition: Serious Referrals: Per Arreola [Primary Care Provider] - Forms: ED Satisfaction Letter Time of Disposition: 10:34 General Adult HPI - General Chief complaint: ED GI Bleed Stated complaint: Throwing up blood Time Seen by Provider: 09/17/18 10:07 Source: patient, EMS Mode of arrival: EMS Limitations: no limitations - History of Present Illness Pain Scale: 0 - Related Data Home Medications Medication Instructions Recorded Confirmed Allopurinol [Zyloprim 300 MG] 300 mg PO DAILY 07/16/15 09/17/18 Cyanocobalamin (Vitamin B-12) 1,000 mcg PO DAILY 03/07/18 09/17/18 [Vitamin B-12] Amlodipine Besylate 5 mg PO DAILY 06/23/18 09/17/18 Duloxetine HCl [Cymbalta] 60 mg PO DAILY 06/23/18 09/17/18 Gabapentin 600 mg PO TID 06/23/18 09/17/18 Metoprolol Succinate [Toprol Xl] 25 mg PO DAILY 06/23/18 09/17/18 Meclizine [Antivert] 25 mg PO BID PRN 07/26/18 09/17/18 Warfarin [Coumadin] 5 mg PO DAILY 07/26/18 09/17/18 Allergies Allergy/AdvReac Type Severity Reaction Status Date / Time No Known Allergies Allergy Verified 07/26/18 14:35 Constitutional: Denies: fever Cardiovascular: Denies: chest pain Respiratory: Reports: dyspnea Gastrointestinal: Reports: nausea, vomiting, hematemesis. Denies: abdominal pain Neurological: Reports: other (Dizziness ). Denies: weakness, numbness, pa resthesias Past Medical History - Past Medical History Medical history: Reports: CVA, DVT, hyperlipidemia, hypertension, TIA, other Surgical history: Reports: breast surgery, cholecystectomy, orthopedic, other, pacemaker Psychiatric history: Reports: no psych history - Social History Smoking Status: Former smoker Smokeless Tobacco Status: No Alcohol use: Reports: none Drug use: Reports: none Physical Exam - General Limitations: no limitations General appearance: alert, in distress, other (Patient has blood in his mouth, his chest all the way down to his feet.) Course Vital Signs Temperature 96.6 F L 09/17/18 10:05 Pulse Rate 86 09/17/18 10:05 Respiratory Rate 24 09/17/18 10:05 Blood Pressure 124/62 09/17/18 10:05 O2 Sat by Pulse Oximetry 100 09/17/18 10:05 Temperature 98.6 F 09/17/18 12:55 Pulse Rate 86 09/17/18 13:21 Respiratory Rate 20 09/17/18 13:21 Blood Pressure 144/61 09/17/18 13:21 O2 Sat by Pulse Oximetry 100 09/17/18 13:21 Oxygen Delivery Oxygen Delivery Room Air Medical Decision Making - Lab Data Result diagrams: 09/17/18 11:26 09/17/18 10:20 Lab Results 09/17/18 09/17/18 09/17/18 Range/Units 10:20 10:20 10:20 WBC (4.3-11.1) K/mcL RBC (4.19-5.50) M/mcL Hgb (12.9-16.9) g/dL Hct (37.5-50.1) % MCV (83.0-100.0) fL MCH (28.0-33.3) pg MCHC (31.6-35.5) g/dL RDW (11.5-14.5) % Plt Count (140-400) K/mcL MPV (9.4-12.4) fL Immature Gran % (0-4) % Seg Neutrophils % % Lymphocytes % % Monocytes % % Eosinophils % % Basophils % % Neutrophils # (1.6-8.9) K/mcL Lymphocytes # (0.6-4.6) K/mcL Monocytes # (0.0-1.3) K/mcL Eosinophils # (0.0-0.6) K/mcL Basophils # (0.0-0.2) K/mcL Nucleated RBCs/100 WBC (0) /100 WBC PT (9.4-12.1) Seconds INR APTT (26.0-36.0) Seconds Sodium 143 (136-145) mEq/L Potassium 4.4 (3.5-5.1) mEq/L Chloride 113 H (98-107) mEq/L Carbon Dioxide 13 L (23-29) mEq/L BUN 48 H (8-23) mg/dL Creatinine 1.67 H (0.70-1.30) mg/dL Est GFR ( Amer) 50 L (> 60) Est GFR (Non-Af Amer) 41 L (> 60) BUN/Creatinine Ratio 29 H (6-26) Glucose 219 H (70-105) mg/dL Calculated Osmolality 315 H (280-300) Calcium 6.7 L (8.6-10.3) mg/dL Troponin I < 0.03 (< 0.04) ng/mL Specimen Rejected Blood Type A POSITIVE Antibody Screen NEGATIVE Crossmatch See Detail 09/17/18 09/17/18 09/17/18 Range/Units 11:09 11:26 11:26 WBC 16.8 H (4.3-11.1) K/mcL RBC 3.31 L (4.19-5.50) M/mcL Hgb 9.1 L (12.9-16.9) g/dL Hct 30.0 L (37.5-50.1) % MCV 90.6 (83.0-100.0) fL MCH 27.5 L (28.0-33.3) pg MCHC 30.3 L (31.6-35.5) g/dL RDW 14.7 H (11.5-14.5) % Plt Count 357 (140-400) K/mcL MPV 9.3 L (9.4-12.4) fL Immature Gran % 2.1 (0-4) % Seg Neutrophils % 85.7 % Lymphocytes % 5.4 % Monocytes % 6.0 % Eosinophils % 0.4 % Basophils % 0.4 % Neutrophils # 14.4 H (1.6-8.9) K/mcL Lymphocytes # 0.9 (0.6-4.6) K/mcL Monocytes # 1.0 (0.0-1.3) K/mcL Eosinophils # 0.1 (0.0-0.6) K/mcL Basophils # 0.1 (0.0-0.2) K/mcL Nucleated RBCs/100 WBC 0.1 H (0) /100 WBC PT 113.2 H* (9.4-12.1) Seconds INR 9.9 H* APTT 82.9 H (26.0-36.0) Seconds Sodium (136-145) mEq/L Potassium (3.5-5.1) mEq/L Chloride (98-107) mEq/L Carbon Dioxide (23-29) mEq/L BUN (8-23) mg/dL Creatinine (0.70-1.30) mg/dL Est GFR ( Amer) (> 60) Est GFR (Non-Af Amer) (> 60) BUN/Creatinine Ratio (6-26) Glucose (70-105) mg/dL Calculated Osmolality (280-300) Calcium (8.6-10.3) mg/dL Troponin I (< 0.04) ng/mL Specimen Rejected MCV Delta Blood Type Antibody Screen Crossmatch 09/17/18 Range/Units 11:26 WBC (4.3-11.1) K/mcL RBC (4.19-5.50) M/mcL Hgb (12.9-16.9) g/dL Hct (37.5-50.1) % MCV (83.0-100.0) fL MCH (28.0-33.3) pg MCHC (31.6-35.5) g/dL RDW (11.5-14.5) % Plt Count (140-400) K/mcL MPV (9.4-12.4) fL Immature Gran % (0-4) % Seg Neutrophils % % Lymphocytes % % Monocytes % % Eosinophils % % Basophils % % Neutrophils # (1.6-8.9) K/mcL Lymphocytes # (0.6-4.6) K/mcL Monocytes # (0.0-1.3) K/mcL Eosinophils # (0.0-0.6) K/mcL Basophils # (0.0-0.2) K/mcL Nucleated RBCs/100 WBC (0) /100 WBC PT (9.4-12.1) Seconds INR APTT (26.0-36.0) Seconds Sodium (136-145) mEq/L Potassium (3.5-5.1) mEq/L Chloride (98-107) mEq/L Carbon Dioxide (23-29) mEq/L BUN (8-23) mg/dL Creatinine (0.70-1.30) mg/dL Est GFR ( Amer) (> 60) Est GFR (Non-Af Amer) (> 60) BUN/Creatinine Ratio (6-26) Glucose (70-105) mg/dL Calculated Osmolality (280-300) Calcium (8.6-10.3) mg/dL Troponin I (< 0.04) ng/mL Specimen Rejected Clotted Blood Type Antibody Screen Crossmatch Critical Care Time Critical Care Time: Yes Total Critical Care Time: 35 Attestation: Critical care time excluding separately billable procedures of 35 minutes given the patient's acute blood loss anemia, abnormal labs including INR of 9.9 requiring multiple blood product transfusion and reversal in conjunction with consultation with specialty services and admission to the intensive care unit. S.B.ALogan - S.Sinan.ALogan Situation: Demographics, MOA Background: Presenting Complaint, Relevant PMH, Meds, & Allergies Assessment: Course and respsone to treatment, Exam Concerns, Patient/Family Expectation, Pertinant Lab Results Recommendation: Barrier(s) to disposition, Recommendation based on pending studies, treatments, or consults S.B.A.R. Report Given to: Dr. Burroughs Attestation Statement - Attestation Attestation: Luther Santillan D.O., examined this patient and my medical decision-making was reviewed with the Resident Physician. I agree with the documented findings, disposition and treatment plan as described except to the extent set forth below. 68-year-old male prior history of DVT currently on Coumadin presenting via EMS due to vomiting blood. Again around 3 AM. EMS reports a large amount of blood in the bathroom on their arrival. The patient has not felt near syncopal. He denies prior history of hematemesis. He denies bleeding from any other source. Denies any chest pain does feel short of breath. Denies any abdominal pain. General: Alert, ill-appearing HENT: Normocephalic, Atraumatic. Dried blood in the oropharynx. Neck: No JVD Cardiovascular: Regular rate and rhythm. No appreciable murmurs Respiratory: Lungs CTAB. No wheezing/rhonchi Abdominal: Soft, non tender, caput medusa over the abdomen, no peritoneal features. Extremities: No peripheral edema Neuro: Alert, Mentating appropriately, No focal deficits Skin: Warm, Dry. The patient has dried blood on his mouth, abdomen as well as his legs. Plan: 2 peripheral lines will be placed. We will begin IV fluid resuscitation. 2 units of blood have been put on standby should the patient develop signs of shock. Endoscopy was contacted immediately upon arrival and will take the pa tient for emergent endoscopy. Patient will be bolused with Protonix, started drip as well as an octreotide bolus and drip. Labs are pending. Admission anticipated to the intensive care unit. ED Procedure Note: EKG interpretation - I agree with the resident physician's documentation and interpretation of the patient's EKG. Sinus rhythm with a rate of 85. Normal axis. Normal intervals. Normal R-wave progression. No gross ST elevations or depressions. No acute ischemic findings. I spoke with the tying machine operator Dr. Burroughs concerning this patient as I believe he will warrant ICU admission. Pulmonary no labs at this point where the hemoglobin of 7.4 as per the senior label specialist. The patient's CBC was hemolyzed. Discussed with the lab who reports his hemoglobin is 7.4 on that blood draw. 2 units of blood were ordered to begin transfusion given his soft pressures. Repeat his CBC. Labs show an INR of 9.9. Patient was given PCC. Gastroenterology has been updated on the patient's labs at this point. The patient is admitted to the tying machine operator.
[2018-09-17] MEDS ORDERED: 0.9 % Sodium Chloride 1,000 ML IVC ONE (10:57)
[2018-09-17] MEDS: Pantoprazole 40 MG in 0.9 % Sodium Chloride Mini Bag 100 ML IVC SCH ×3 (10:59→21:31)
[2018-09-17 11:40] LABS: Basophils # 0.1 K/mcL (0.0-0.2); Basophils % 0.4 %; Eosinophils # 0.1 K/mcL (0.0-0.6); Eosinophils % 0.4 %; Immature Granulocytes % 2.1 % (0-4); Lymphocytes # 0.9 K/mcL (0.6-4.6); Lymphocytes % 5.4 %; Mean Corpuscular HGB Conc 30.3 g/dL (31.6-35.5); Mean Corpuscular Hemoglobin 27.5 pg (28.0-33.3); Mean Corpuscular Volume 90.6 fL (83.0-100.0); Mean Platelet Volume 9.3 fL (9.4-12.4); Neutrophils # 14.4 K/mcL (1.6-8.9); Nucleated Red Blood Cells 0.1 /100 WBC (0); Platelet Count 357 K/mcL (140-400); Red Blood Count 3.31 M/mcL (4.19-5.50); Red Cell Distribution Width 14.7 % (11.5-14.5); Segmented Neutrophils % 85.7 %; White Blood Count 16.8 K/mcL (4.3-11.1)
[2018-09-17 11:54] LABS: Hemoglobin 9.1 g/dL (12.9-16.9)
[2018-09-17 11:55] LABS: Activated Partial Thrombo Time 82.9 Seconds (26.0-36.0)
[2018-09-17 12:00] LABS: Calcium 6.7 mg/dL (8.6-10.3); Potassium 4.4 mEq/L (3.5-5.1)
[2018-09-17 12:03] LABS: Prothrombin Time 113.2 Seconds (9.4-12.1)
[2018-09-17] MEDS ORDERED: Calcium Gluconate 1gm/50mL 1 GM/50 ML BAG IVPB ONE (12:03)
[2018-09-17 12:04] LABS: INR 9.9
[2018-09-17] MEDS ORDERED: HUM PROTHROMBIN CPLX(PCC)4FACT 5,000 UNIT in Water for inj. (sterile) 200 ML IVPB ONE (12:07)
[2018-09-17] MEDS ORDERED: 0.9 % Sodium Chloride 250 ML ONE ×2 (12:24→20:04)
--- NOTE | 2018-09-17 14:20 | Anesthesia Evaluation PreOp ---
Date of Encounter: 09/17/18 Time of Encounter: 14:30 - Past History Planned Operation: EGD Cardiac History: HTN, Hyperlipidemia, Pacemaker/ICD (pacemaker only), Other (DVT) Pulmonary History: Former smoker, [place] Dx ANIMAL WARDEN History: CVA Other Medical History: Denies Any Significant HX, Renal (CKD), Diabetes Type II Anesthesia History: No Prior Anesthetic Complications Alcohol Use: none Drug use: none Medications and Allergies Allopurinol [Zyloprim 300 MG] 300 mg PO DAILY 07/16/15 [History] Cyanocobalamin (Vitamin B-12) [Vitamin B-12] 1,000 mcg PO DAILY 03/07/18 [History] Amlodipine Besylate 5 mg PO DAILY 06/23/18 [History] Duloxetine HCl [Cymbalta] 60 mg PO DAILY 06/23/18 [History] Gabapentin 600 mg PO TID 06/23/18 [History] Metoprolol Succinate [Toprol Xl] 25 mg PO DAILY 06/23/18 [History] Meclizine [Antivert] 25 mg PO BID PRN 07/26/18 [History] Warfarin [Coumadin] 5 mg PO DAILY 07/26/18 [History] Allergy/AdvReac Type Severity Reaction Status Date / Time No Known Allergies Allergy Verified 07/26/18 14:35 - Meds/Allergy Pre-op Review Medications Reviewed: Yes Allergies Reviewed: Yes Beta Blockers on Current Med List: Yes (on metoprolol) Anesthesia Results - Labs 09/17/18 11:26 09/17/18 10:20 - Imaging EKG: report reviewed (Atrial Paced) Anesthesia Exam Vital Signs/O2 Sat/Glucose, Most Current Temp Pulse Resp BP Pulse Ox 09/17/18 13:21 86 20 144/61 100 09/17/18 12:55 98.6 F 83 20 138/63 100 09/17/18 12:40 99.4 F 75 15 100/82 100 09/17/18 11:42 83 14 101/59 100 09/17/18 11:12 84 103/55 98 Height: 6'1 Weight: 245 lbs NPO (# of Hours): MN Pain Scale: 0 - HEENT Pupil (Motor): Pupils equal, EOMI Mallampati: III Teeth: Poor dentition Oral Opening: Greater than 3 - ANIMAL WARDEN LOC: Oriented ANIMAL WARDEN Motor: Normal RUE, Normal LUE, Normal RLE, Normal LLE, Normal Face ANIMAL WARDEN Sensory: Normal: RUE, LUE, RLE, LLE, Face - Cardiac Rhythm: Regular Murmur: None JVD: No Carotid Bruit: No - Pulmonary Breath Sounds: bilateral Clear Respiratory Effort: Symmetrical Anesthesia Assess/Plan ASA Score: 3 Level of consciousness: Cooperative, Oriented Anesthetic Plan: General Autologous Blood: No Monitoring Plan: Standard Monitors Recovery Plan: PACU (Discussed GA, agrees to proceed)
[2018-09-17] MEDS ORDERED: Lidocaine -MPF 2% 2 ML VIAL ONE ×2 (14:34→17:16)
[2018-09-17] MEDS ORDERED: *HR* Propofol 200 MG/20 ML VIAL IVP ONE ×2 (14:34→14:46)
[2018-09-17] MEDS ORDERED: *HR* Succinylcholine 200 MG/10 ML VIAL IVP ONE (14:34)
[2018-09-17 16:27] LABS: INR 1.2; Prothrombin Time 13.9 Seconds (9.4-12.1)
--- NOTE | 2018-09-17 16:35 | Pulmonology Consult Note ---
Date of Encounter: 09/17/18 Time of Encounter: 16:34 History of Present Illness History of present illness: Sergio Garcia is a 68-year-old male who presented to the ER on 09/17/18 with complaints of hematemesis. Past medical history per EMR: Left leg DVT discovered on 12/31/17 on warfarin therapy, abdominal varices, right renal atrophy, CVA, hypertension, hyperlipid emia, hypoplastic vena cava, pacemaker, obstructive sleep apnea Last visit to [facility] ER was 06/23/18 for complaints of left lower extremity pain. Doppler ultrasound negative for acute DVT and showed only chronic DVT. In the ER Vital signs were stable. Initial Labs significant for WBC 16.8. hemoglobin 9.1 from 11.9 on 09/07/18. Normal platelet count. PT 113.2. INR 9.9. PTT 82.9. Lupus anticoagulant INR 50.9. Lupus anticoagulant a PTT greater than 150. Hiro viper venom 81. LA PTT mix PT/normal 1:155. Hexagonal phospholipid neutralization positive. Serum carbon dioxide 13. BUN 48 from 24 on 09/07/18. Calculated osmolality 315. Elevated alkaline phosphatase. Patient was taken to the endoscopy suite emergently. Given pantoprazole, octreotide. Hematemesis Past Med Surg Social Fam HX - Past Medical History Medical history: CVA, DVT, hyperlipidemia, hypertension, TIA, other Additional medical history: SLEEP APNEA. HYPOPLASTIC VENA CAVA. ABDOMINAL VARI RAYNA. RIGHT RENAL ATROPHY. CATARACTS. Hammertoe left 2nd. PACEMAKER Psychiatric history: no psych history - Past Surgical History Surgical History: breast surgery, cholecystectomy, orthopedic, other, pacemaker Additional surgical history: PACEMAKER IMPLANT. FOOT SURGERY X6. EAR. BREAST. CHOLECYSTECTOMY - Social History Smoking Status: Former smoker Smokeless Tobacco Status: No Alcohol use: none Drug use: none - Family History Father Living Status: Hx Family Cardiac Disorders: No Hx Family Respiratory Disorders: Yes Hx Family Cancer: Yes (colon cancer) Hx Family GI Disorders: No Hx Family Endocrine Disorder: No Hx Family Neuromuscular Disorders: No Hx Family Neurologic Disorders: No Hx Family HEENT Disorders: No Hx Family Autoimmune Disorders: No Mother Living Status: Hx Family Respiratory Disorders: Yes Sister Hx Family Cancer: Yes (bone cancer) Medications and Allergies Allopurinol [Zyloprim 300 MG] 300 mg PO DAILY 07/16/15 [History] Cyanocobalamin (Vitamin B-12) [Vitamin B-12] 1,000 mcg PO DAILY 03/07/18 [History] Amlodipine Besylate 5 mg PO DAILY 06/23/18 [History] Duloxetine HCl [Cymbalta] 60 mg PO DAILY 06/23/18 [History] Gabapentin 600 mg PO TID 06/23/18 [History] Metoprolol Succinate [Toprol Xl] 25 mg PO DAILY 06/23/18 [History] Meclizine [Antivert] 25 mg PO BID PRN 07/26/18 [History] Warfarin [Coumadin] 5 mg PO DAILY 07/26/18 [History] Allergy/AdvReac Type Severity Reaction Status Date / Time No Known Allergies Allergy Verified 07/26/18 14:35 All Systems: The remainder of the systems were reviewed and are negative Physical Examination Vital Signs: Vital Signs, Last 4 Hours Temp Pulse Resp BP Pulse Ox 09/17/18 15:02 85 20 146/84 98 09/17/18 13:21 86 20 144/61 100 09/17/18 12:55 98.6 F 83 20 138/63 100 09/17/18 12:40 99.4 F 75 15 100/82 100 Results - Laboratory Findings CBC and BMP: 09/17/18 11:26 09/17/18 10:20 PT/INR, D-dimer PT 13.9 Seconds (9.4-12.1) H D 09/17/18 16:00 Abnormal lab findings: Abnormal lab results WBC 16.8 K/mcL (4.3-11.1) H 09/17/18 11:26 RBC 3.31 M/mcL (4.19-5.50) L 09/17/18 11:26 Hgb 9.1 g/dL (12.9-16.9) L 09/17/18 11:26 Hct 30.0 % (37.5-50.1) L 09/17/18 11:26 MCH 27.5 pg (28.0-33.3) L 09/17/18 11:26 MCHC 30.3 g/dL (31.6-35.5) L 09/17/18 11:26 RDW 14.7 % (11.5-14.5) H 09/17/18 11:26 MPV 9.3 fL (9.4-12.4) L 09/17/18 11:26 Neutrophils # 14.4 K/mcL (1.6-8.9) H 09/17/18 11:26 Nucleated RBCs/100 WBC 0.1 /100 WBC (0) H 09/17/18 11:26 PT 13.9 Seconds (9.4-12.1) H D 09/17/18 16:00 INR 9.9 H* 09/17/18 11:26 APTT 82.9 Seconds (26.0-36.0) H 09/17/18 11:26 Chloride 113 mEq/L (98-107) H 09/17/18 10:20 Carbon Dioxide 13 mEq/L (23-29) L 09/17/18 10:20 BUN 48 mg/dL (8-23) H 09/17/18 10:20 Creatinine 1.67 mg/dL (0.70-1.30) H 09/17/18 10:20 Est GFR ( Amer) 50 (> 60) L 09/17/18 10:20 Est GFR (Non-Af Amer) 41 (> 60) L 09/17/18 10:20 BUN/Creatinine Ratio 29 (6-26) H 09/17/18 10:20 Glucose 219 mg/dL (70-105) H 09/17/18 10:20 Calculated Osmolality 315 (280-300) H 09/17/18 10:20 Calcium 6.7 mg/dL (8.6-10.3) L 09/17/18 10:20 Crossmatch See Detail 09/17/18 10:20 - Clinical Findings Intake & Output: Intake & Output 09/17/18 09/17/18 09/17/18 07:59 15:59 23:59 Intake Total 1415 / 1415 Balance 1415 / 1415 Weight 111.357 kg Consult Discharge Plan - Plan Referrals: Per Arreola [Primary Care Provider] -
--- NOTE | 2018-09-17 18:19 | Anesthesia Evaluation Post Op ---
Date of Encounter: 09/17/18 Time of Encounter: 18:20 - Vital Signs Vital Signs: Vital Signs/O2 Sat/Glucose, Most Current Temp Pulse Resp BP Pulse Ox 09/17/18 18:10 88 22 157/71 100 09/17/18 18:00 98.2 F 84 22 164/82 97 09/17/18 17:50 98.2 F 83 22 163/91 95 09/17/18 15:02 85 20 146/84 98 - Lungs Lungs: Clear Ascult./Percussion - Airway Airway: Non-obstructed - Cardiovascular Regular Rate - Mental Status Mental Status: Alert & Oriented, Answers Appropriately - Pain Pain Scale: 0 - Nausea Vomiting Nausea Vomiting: Not Present - Hydration Hydration: NPO - Discharge PostOp Status: Transfer Patient to floor
--- NOTE | 2018-09-17 18:23 | Gastroenterology Consult Note ---
Date of Encounter: 09/17/18 Time of Encounter: 15:00 - Assessment and plan (1) Hematemesis Current Visit: Yes Status: Acute Assessment and plan: In this patient wHO IS on Coumadin and his INR is supratherapeutic 9.9. His been given Protonix complex concentraTE AND his INR is now 1.2 .No more episode of hematemesis he will have an EGD done. Symptoms are very concerning for a [place] tear but rule out other upper GI etiologies. We will follow H&H continue PPI. Qualifiers: Nausea presence: unspecified Qualified Code(s): K92.0 - Hematemesis (2) DVT (deep venous thrombosis) Current Visit: No Status: Chronic Assessment and plan: History of DVT currently on Coumadin. Management as per hospitalist Qualifiers: Affected thrombotic vein of extremity: unspecified vein of extremity Chronicity: unspecified Laterality: unspecified laterality Qualified Code(s): I82.409 - Acute embolism and thrombosis of unspecified deep veins of unspecified lower extremity - Time Spent With Patient Total time spent is greater than 50% in coordination of care (as documented) at patient's floor/unit and/or counseling patient: GI History of Present Illness - Data of Consult Requesting Physician: Erick Burroughs MD - Consult Narrative Reason for consult: Hematemesis History of present illness: Mr. Garcia is a 68 year old male who came to the ER because of hematemesis per patient he woke up this morning felt nauseated and then vomited large amount of blood.In the ER Vital signs were stable. Initial Labs significant for WBC 16.8. hemoglobin 9.1 from 11.9 on 09/07/18. Normal platelet count. PT 113.2. INR 9.9. He was given Protonix complex concentrate and his PT/INR is 1.2 no more episodes of vomiting of blood. He denies any abdominal pain Past Med Surg Social Fam HX - Past Medical History Medical history: CVA, DVT, hyperlipidemia, hypertension, TIA, other Additional medical history: SLEEP APNEA. HYPOPLASTIC VENA CAVA. ABDOMINAL VARICES. RIGHT RENAL ATROPHY. CATARACTS. Hammertoe left 2nd. PACEMAKER Psychiatric history: no psych history - Past Surgical History Surgical History: breast surgery, cholecystectomy, orthopedic, other, pacemaker Additional surgical history: PACEMAKER IMPLANT. FOOT SURGERY X6. EAR. BREAST. CHOLECYSTECTOMY - Social History Smoking Status: Former smoker Smokeless Tobacco Status: No Alcohol use: none Drug use: none - Family History Father Living Status: Hx Family Cardiac Disorders: No Hx Family Respiratory Disorders: Yes Hx Family Cancer: Yes (colon cancer) Hx Family GI Disorders: No Hx Family Endocrine Disorder: No Hx Family Neuromuscular Disorders: No Hx Family Neurologic Disorders: No Hx Family HEENT Disorders: No Hx Family Autoimmune Disorders: No Mother Living Status: Hx Family Respiratory Disorders: Yes Sister Hx Family Cancer: Yes (bone cancer) Review of Systems: GI: as per [place] GENERAL: denies fever, has some chills EYES: denies yellow discoloration ENT: denies pain with swallowing or difficulty swallowing CARDIO: denies chest pain, palpitations RESP: No Shortness of breath with exertion : denies change in color of urine NEURO: denies any weakness HEME: Denies any bruising MS: denies joint pain, joint swelling or back pain. DERM: denies rash or itching PSYCH: Denies history of anxiety or depression - Constitutional Vitals: Temp Pulse Resp BP Pulse Ox 98.2 F 88 22 157/71 100 09/17/18 18:00 09/17/18 18:10 09/17/18 18:10 09/17/18 18:10 09/17/18 18:10 Exam: CONSTITUTIONAL:alert, no acute distress.HEAD:normocephalic.EYES:no jaundice.NECK:no obvious swelling.HEART:regular rate and rhythm, no murmurs.LUNGS:bilateral good air entry.ABDOMEN:non distended, soft, non tander, no masses pulpable, no organomegaly.RECTAL EXAM:Deferred.EXTREMITIES:no clubbing, cyanosis or edema. has amputation of his left great toeSKIN:no stigmata of chronic liver disease.NEUROLOGIC:no obvious focal defect. Results - Labs CBC & Chem 7: 09/17/18 11:26 09/17/18 10:20 Labs: Last Result 09/17/18 09/17/18 10:20 10:20 Calcium 6.7 L Troponin I < 0.03 Entire Visit 09/17/18 09/17/18 09/17/18 11:26 11:26 16:00 Hgb 9.1 L Hct 30.0 L PT 113.2 H* 13.9 H D - ABG ABG results: PT/INR, D-dimer PT 13.9 Seconds (9.4-12.1) H D 09/17/18 16:00 - Impressions Impressions Chest X-Ray 09/17/18 10:26 IMPRESSION: No evidence of acute cardiopulmonary disease. D/ / Huber Washburn MD / Huber Washburn MD Interpreting Provider: Huber Washburn MD Consult Discharge Plan - Plan Referrals: Per Arreola [Primary Care Provider] -
[2018-09-17] MEDS ORDERED: Naloxone 0.4 MG/ML INJ IVP PRN (18:37)
[2018-09-17] MEDS ORDERED: Ondansetron 4 MG/2 ML VIAL IVP PRN ×2 (18:37→19:59)
[2018-09-17] MEDS ORDERED: *HR* Promethazine 25 MG/ML VIAL IVP PRN (18:37)
[2018-09-17 19:05] LABS: Basophils # 0.1 K/mcL (0.0-0.2); Basophils % 0.4 %; Eosinophils # 0.1 K/mcL (0.0-0.6); Eosinophils % 0.4 %; Hematocrit 28.2 % (37.5-50.1); Hemoglobin 8.7 g/dL (12.9-16.9); Immature Granulocytes % 0.8 % (0-4); Lymphocytes # 1.8 K/mcL (0.6-4.6); Lymphocytes % 14.1 %; Mean Corpuscular HGB Conc 30.9 g/dL (31.6-35.5); Mean Corpuscular Hemoglobin 27.7 pg (28.0-33.3); Mean Corpuscular Volume 89.8 fL (83.0-100.0); Mean Platelet Volume 9.9 fL (9.4-12.4); Monocytes # 0.9 K/mcL (0.0-1.3); Monocytes % 7.2 %; Neutrophils # 10.1 K/mcL (1.6-8.9); Platelet Count 287 K/mcL (140-400); Red Blood Count 3.14 M/mcL (4.19-5.50); Red Cell Distribution Width 15.3 % (11.5-14.5); Segmented Neutrophils % 77.1 %
[2018-09-17 19:13] LABS: INR 1.4; Prothrombin Time 15.8 Seconds (9.4-12.1)
[2018-09-17 19:23] LABS: Albumin 3.5 g/dL (3.5-5.7); Albumin/Globulin Ratio 1.6 (1.1-2.2); Bilirubin,Total 0.6 mg/dL (0.3-1.0); Calcium 8.3 mg/dL (8.6-10.3); Globulin 2.2 g/dL (2.4-3.5); Potassium 5.3 mEq/L (3.5-5.1); Total Protein 5.7 g/dL (6.4-8.9)
[2018-09-17] MEDS ORDERED: D5% in 0.45% NACL 1,000 ML IVC SCH (19:45)
[2018-09-17] MEDS ORDERED: *HR* LORazepam Oral Conc 2 MG/ML SL ONE (20:00)
--- NOTE | 2018-09-17 20:04 | Internal Med History&Physical ---
Date of Encounter: 09/17/18 Time of Encounter: 20:03 Internal Medicine - H&P: HPI Chief complaint: vomiting blood Admitted From: Home Plans for Post Hospital Care: Home History of present illness: Sergio Garcia is a 68 year old man with hypertension, hyperlipidemia, TIAs and a left leg DVT on warfarin presented to the emergency room early this morning with mariel hematemesis stating that after he woke up in the morning he felt nauseated and vomited multiple times, seeing a significant amount of blood in the bathroom. He subsequently felt lightheaded and dizzy but did not pass out. He also became mildly dyspneic and with some abdominal pain but denied associated chest pain. There is no history of liver disease. In the ER he was found to have an elevated INR 9.9. He was started on pantoprazole and octreotide infusions. Blood transfusions were started and he received prothrombin complex concentrate for reversal of his INR urgently. He was seen by GI and taken for endoscopy where a linear Niya-De Los Santos tear was seen at the GE junction with no active bleeding. There was also dark coffee-ground fluid found in the gastric body. No interventions were performed and he was transferred to the floor. Thus far he received 1 unit of blood and is currently undergoing his second blood transfusion. On my assessment he is significantly restless in bed stating that he wants to go home because he is bored. He denies abdominal pain, nausea and ongoing vomiting. He is yet to have a bowel movement. Vitals: Reviewed General: Obese white man lying in bed, moving restlessly. Skin: Warm and dry. HEENT: Slightly dry mucous membranes. Mild conjunctivae pallor. Neck: No lymphadenopathy. No JVD. No carotid bruits. No palpable thyroid. Chest: Normal thoracic expansion. Normal breath sounds. Clear to auscultation. Heart: Normal S1 & S2; rhythmic. No rubs or murmurs. Abdomen: Non-distended, soft and non-tender to palpation. No peritoneal reaction. Extremities: 1-2+ pitting edema in both legs with notable large varicose veins evident and hyperpigmentation of venous stasis. Neurological: Awake, alert and oriented to person, place and time. No focal deficits. Psych: Affect appropriate. Assessment/Plan 1. Acute blood loss anemia: Secondary to GI bleed in the setting of an elevated INR. The bleed has been controlled and INR reversed with PCC. He is currently completing his 2nd unit of blood. Keep on maintenance fluids. Will repeat CBC in the morning to ensure stability. 2. Upper GI bleed: Found to have a M-W tear as the potential cause but no interventions were required. Will continue PPI drip and stop octreotide. Will start clear liquids and gradually advance diet as tolerated. 3. VTE: He has had multiple DVT events with thrombophilia evaluation remarkable only for positive lupus anticoagulant. He will likely need long-term AC but for now warfarin will be on hold until further stabilization. 4. Hypertension: Poorly controlled. Will resume home medications tomorrow. Past Med Surg Social Fam HX - Past Medical History Medical history: CVA, DVT, hyperlipidemia, hypertension, TIA, other Additional medical history: SLEEP APNEA. HYPOPLASTIC VENA CAVA. ABDOMINAL VARICES. RIGHT RENAL ATROPHY. CATARACTS. Hammertoe left 2nd. PACEMAKER Psychiatric history: no psych history - Past Surgical History Surgical History: breast surgery, cholecystectomy, orthopedic, other, pacemaker Additional surgical history: PACEMAKER IMPLANT. FOOT SURGERY X6. EAR. CHOLECYSTECTOMY - Social History Smoking Status: Former smoker Smokeless Tobacco Status: No Alcohol use: none Drug use: none - Family History Father Living Status: Hx Family Cardiac Disorders: No Hx Family Respiratory Disorders: Yes Hx Family Cancer: Yes (colon cancer) Hx Family GI Disorders: No Hx Family Endocrine Disorder: No Hx Family Neuromuscular Disorders: No Hx Family Neurologic Disorders: No Hx Family HEENT Disorders: No Hx Family Autoimmune Disorders: No Mother Living Status: Hx Family Respiratory Disorders: Yes Sister Hx Family Cancer: Yes (bone cancer) Internal Medicine - H&P: Meds Allopurinol [Zyloprim 300 MG] 300 mg PO DAILY 07/16/15 [History] Cyanocobalamin (Vitamin B-12) [Vitamin B-12] 1,000 mcg PO DAILY 03/07/18 [Hi story] Amlodipine Besylate 5 mg PO DAILY 06/23/18 [History] Duloxetine HCl [Cymbalta] 60 mg PO DAILY 06/23/18 [History] Gabapentin 600 mg PO TID 06/23/18 [History] Metoprolol Succinate [Toprol Xl] 25 mg PO DAILY 06/23/18 [History] Meclizine [Antivert] 25 mg PO BID PRN 07/26/18 [History] Warfarin [Coumadin] 5 mg PO DAILY 07/26/18 [History] Allergy/AdvReac Type Severity Reaction Status Date / Time No Known Allergies Allergy Verified 07/26/18 14:35 All Systems PM: A 10-system review of systems was performed and is negative for pertinent findings except as documented above in the HPI. - Constitutional Vitals: Temp Pulse Resp BP Pulse Ox 98.3 F 83 20 176/84 100 09/17/18 18:20 09/17/18 18:40 09/17/18 18:40 09/17/18 18:40 09/17/18 18:59 Exam: . Internal Med - H&P Results - Labs CBC & Chem 7: 09/17/18 18:53 09/17/18 18:53 Labs: Short CBC 09/17/18 09/17/18 Range/Units 11:26 18:53 WBC 16.8 H 13.0 H (4.3-11.1) K/mcL Hgb 9.1 L 8.7 L (12.9-16.9) g/dL Hct 30.0 L 28.2 L (37.5-50.1) % Plt Count 357 287 (140-400) K/mcL Neutrophils # 14.4 H 10.1 H (1.6-8.9) K/mcL BMP 09/17/18 09/17/18 10:20 18:53 Sodium 143 143 Potassium 4.4 5.3 H Chloride 113 H 114 H Carbon Dioxide 13 L 20 L BUN 48 H 69 H Creatinine 1.67 H 1.86 H Glucose 219 H 139 H Calcium 6.7 L 8.3 L Cardiac Enzymes 09/17/18 Range/Units 10:20 Troponin I < 0.03 (< 0.04) ng/mL Liver Function 09/17/18 Range/Units 18:53 Total Bilirubin 0.6 (0.3-1.0) mg/dL AST 13 (13-39) Units/L ALT 9 (7-52) Units/L Alkaline Phosphatase 69 (34-104) Units/L Albumin 3.5 (3.5-5.7) g/dL - Impressions ITS Impressions Chest X-Ray 09/17/18 10:26 IMPRESSION: No evidence of acute cardiopulmonary disease. D/ / Huber Washburn MD / Huber Washburn MD Interpreting Provider: Huber Washburn MD - Time Spent With Patient Total time spent is greater than 50% in coordination of care (as documented) at patient's floor/unit and/or counseling patient: - VTE Reasons for not Prescribing Prophylaxis: Medical contraindication
[2018-09-17] MEDS ORDERED: Acetaminophen 325 MG TABLET PO PRN (20:33)
[2018-09-17] MEDS: Gabapentin 300 MG CAPSULE PO SCH (21:36)
[2018-09-17] MEDS ORDERED: Haloperidol Lactate 5 MG/ML VIAL IVP ONE (23:54)
[2018-09-18] MEDS: Pantoprazole 40 MG in 0.9 % Sodium Chloride Mini Bag 100 ML IVC SCH ×3 (00:42→10:31)
[2018-09-18 03:17] LABS: Basophils # 0.1 K/mcL (0.0-0.2); Basophils % 0.5 %; Eosinophils # 0.1 K/mcL (0.0-0.6); Eosinophils % 0.6 %; Hematocrit 30.9 % (37.5-50.1); Hemoglobin 9.4 g/dL (12.9-16.9); Immature Granulocytes % 0.9 % (0-4); Lymphocytes # 3.6 K/mcL (0.6-4.6); Lymphocytes % 18.8 %; Mean Corpuscular HGB Conc 30.4 g/dL (31.6-35.5); Mean Corpuscular Hemoglobin 27.6 pg (28.0-33.3); Mean Corpuscular Volume 90.9 fL (83.0-100.0); Mean Platelet Volume 9.7 fL (9.4-12.4); Monocytes # 1.8 K/mcL (0.0-1.3); Monocytes % 9.3 %; Neutrophils # 13.5 K/mcL (1.6-8.9); Nucleated Red Blood Cells 0.2 /100 WBC (0); Platelet Count 317 K/mcL (140-400); Red Cell Distribution Width 15.7 % (11.5-14.5); Segmented Neutrophils % 69.9 %; White Blood Count 19.3 K/mcL (4.3-11.1)
[2018-09-18 03:24] LABS: INR 1.8; Prothrombin Time 20.5 Seconds (9.4-12.1)
[2018-09-18 03:33] LABS: Albumin 3.8 g/dL (3.5-5.7); Albumin/Globulin Ratio 1.7 (1.1-2.2); Bilirubin,Total 0.6 mg/dL (0.3-1.0); Calcium 8.4 mg/dL (8.6-10.3); Globulin 2.3 g/dL (2.4-3.5); Total Protein 6.1 g/dL (6.4-8.9)
[2018-09-18] MEDS: Gabapentin 300 MG CAPSULE PO SCH ×2 (09:20→20:55)
[2018-09-18] MEDS: amLODIPine 5 MG TABLET PO SCH (09:20)
[2018-09-18] MEDS: Cyanocobalamin (B-12) 1,000 MCG TABLET PO SCH (09:21)
[2018-09-18] MEDS: Metoprolol XL (24 HR) Succ 25 MG TAB.ER.24H PO SCH (09:21)
[2018-09-18 10:43] LABS: Magnesium 2.1 mg/dL (1.6-2.6)
[2018-09-18] MEDS ORDERED: D5% in Water 1,000 ML IVC PRN (11:07)
[2018-09-18] MEDS ORDERED: *HR* Dextrose 50 % in Water (Syg) 50 ML SYRINGE IVP PRN (11:07)
[2018-09-18] MEDS ORDERED: Dextrose Gel 15 GM/37.5 ML TUBE PO PRN ×2 (11:07)
--- NOTE | 2018-09-18 12:03 | Internal Med Progress Note ---
Hospitalist Progress Note - Encounter Date of Encounter: 09/18/18 Time of Encounter: 12:00 - Subjective Interval History: Patient was seen and examined at bedside. No acute events overnight. Patient however feels anxious and does not like being in the hospital. He denies having any chest pain, abdominal pain, nausea, vomiting, fevers, chills. He has not had any further bloody emesis or stools. He has not had any syncope, lightheadedness, or dizziness. - Exam Vitals: Temp Pulse Resp BP Pulse Ox 98.5 F 84 16 173/63 92 09/18/18 08:31 09/18/18 08:31 09/18/18 08:31 09/18/18 08:31 09/18/18 08:31 Exam: GEN: Anxious appearing, NAD, conversant. HEAD: Normocephalic, atraumatic. EYES: PERRL, EOMI, anicteric. ENT: MMM. oropharynx without erythema or drainage. NECK: Supple. No LAD. No stiffness or restricted ROM. No tracheal deviation. No crepitus. HEART: Regular rate and regular rhythm, normal S1/S2, no m/r/g. No chest wall crepitus or tenderness. LUNGS: Good air exchange bilaterally, bibasilar lower lobe crackles, no wheezing. ABDO: Soft, nontender, nondistended with active bowel sounds. : No suprapubic tenderness or CVA tenderness. BACK: No obvious stepoffs or deformities. EXT: Without cyanosis, clubbing or edema. SKIN: Warm and dry without any rash. NEURO: Grossly nonfocal. Alert and oriented, moving all 4 extremities. CN not formally tested but appear grossly intact. Observed to ambulate with normal gait. PSYCH: Normal affect, no depressed or anxious mood. - Assessment and Plan (1) Gastrointestinal hemorrhage with hematemesis Current Visit: Yes Status: Acute Assessment and Plan: Patient presented with hematemesis. EGD performed showed a Niya De Los Santos tear that did not need intervention. No active bleeding. Supratherapeutic INR of 9.9. Was started on pantoprazole and octreotide. Was transfused 2 units PRBCs and anticoagulation reversed with PCC. Hgb today at 9.4. INR today at 1.8. Plan: - GI consulted: currently on clear liquids, advance diet as tolerate - Will observe for 48 hours for bleeding - Cont maintenance fluids - Cont PPI protonix 40mg IV BID for 1 week - Stop octreotide - Hold warfarin for now, can restart tomorrow - Trend CBC to track hemoglobin, trend PT/INR (2) Supratherapeutic INR Current Visit: Yes Status: Acute Assessment and Plan: Had a supratherapeutic INR of 9.9. Was given 2 units PRBCs and reversed with PCC. INR now currently 1.8. Plan: - Hold warfarin for now - Trend PT/INR (3) Acute blood loss anemia Current Visit: Yes Status: Acute Assessment and Plan: Likely due to gastrointestinal hemorrhage due to Niya-De Los Santos tear. Was transfused 2 units of PRBCs. - Cont to trend CBC for hemoglobin (4) Hypertension Current Visit: Yes Status: Acute Assessment and Plan: Patient has had poorly controlled blood pressures in the hospital. - Will continue home BP meds - Restarted home amlodipine, metoprolol (5) DVT (deep venous thrombosis) Current Visit: No Status: Chronic Assessment and Plan: Patient has had multiple DVTs events with thrombophilia evaluation remarkable for positive lupus anticoagulant. Needs long-term anticoagulation. - Holding warfarin now in context of GI bleed DVT Prophylaxis: - SCDs - Time Spent with Patient Total time spent is greater than 50% in coordination of care (as documented) at patient's floor/unit and/or counseling patient: less than 15 minutes Plan of Care Discussed with: patient Internal Medicine: Result - Labs CBC & Chem 7: 09/18/18 02:51 09/18/18 02:51 Labs: Short CBC 09/17/18 09/18/18 Range/Units 18:53 02:51 WBC 13.0 H 19.3 H (4.3-11.1) K/mcL Hgb 8.7 L 9.4 L (12.9-16.9) g/dL Hct 28.2 L 30.9 L (37.5-50.1) % Plt Count 287 317 (140-400) K/mcL Neutrophils # 10.1 H 13.5 H (1.6-8.9) K/mcL BMP 09/17/18 09/17/18 09/18/18 10:20 18:53 02:51 Sodium 143 143 141 Potassium 4.4 5.3 H 5.0 Chloride 113 H 114 H 115 H Carbon Dioxide 13 L 20 L 20 L BUN 48 H 69 H 66 H Creatinine 1.67 H 1.86 H 1.85 H Glucose 219 H 139 H 174 H Calcium 6.7 L 8.3 L 8.4 L Liver Function 09/17/18 09/18/18 Range/Units 18:53 02:51 Total Bilirubin 0.6 0.6 (0.3-1.0) mg/dL AST 13 16 (13-39) Units/L ALT 9 9 (7-52) Units/L Alkaline Phosphatase 69 71 (34-104) Units/L Albumin 3.5 3.8 (3.5-5.7) g/dL - ABG Interpretation ABG results: PT/INR, D-dimer PT 20.5 Seconds (9.4-12.1) H 09/18/18 02:51 - VTE Reasons for not Prescribing Prophylaxis: Medical contraindication Consult Discharge Plan - Plan Referrals: Per Arreola [Primary Care Provider] - (4) Hypertension Qualifiers: Hypertension type: essential hypertension Qualified Code(s): I10 - Essential (primary) hypertension (5) DVT (deep venous thrombosis) Qualifiers: Affected thrombotic vein of extremity: unspecified vein of extremity Chronic ity: unspecified Laterality: unspecified laterality Qualified Code(s): I82.409 - Acute embolism and thrombosis of unspecified deep veins of unspecified lower extremity
[2018-09-18] MEDS: Insulin LISPRO 300 UNITS/3 ML VIAL SQ SCH ×2 (12:06→17:13)
[2018-09-18 14:11] LABS: Bilirubin,Urine Negative (Negative); Blood,Urine Trace (Negative); Clarity,Urine Clear (Clear); Color,Urine Yellow (Yellow); Glucose,Urine (UA) Normal (Normal); Ketones,Urine Negative (Negative); Leukocyte Esterase,Urine Negative (Negative); Nitrite,Urine Negative (Negative); Protein,Urine Negative (Neg-Trace); Specific Gravity,Urine 1.014 (1.010-1.025); Urobilinogen,Urine Normal (Normal)
[2018-09-18 14:14] LABS: Bacteria,Urine None Seen per hpf (None-Few); Hyaline Casts,Urine None Seen per lpf (None-Few); Squamous Epithelial Cell,Urine Moderate per lpf (None-Few); WBC,Urine 0-3 per hpf (0-3)
[2018-09-18] MEDS: Pantoprazole 40 MG VIAL IVP SCH (17:20)
[2018-09-18] MEDS ORDERED: Insulin LISPRO 300 UNITS/3 ML VIAL SQ SCH (21:00)
[2018-09-19 05:27] LABS: Hematocrit 24.1 % (37.5-50.1); Mean Corpuscular HGB Conc 30.7 g/dL (31.6-35.5); Mean Corpuscular Hemoglobin 27.7 pg (28.0-33.3); Mean Corpuscular Volume 90.3 fL (83.0-100.0); Mean Platelet Volume 9.7 fL (9.4-12.4); Platelet Count 209 K/mcL (140-400); Red Blood Count 2.67 M/mcL (4.19-5.50); Red Cell Distribution Width 15.9 % (11.5-14.5); White Blood Count 9.8 K/mcL (4.3-11.1)
[2018-09-19 05:28] LABS: Hemoglobin 7.4 g/dL (12.9-16.9)
[2018-09-19 05:40] LABS: Albumin 3.2 g/dL (3.5-5.7); Albumin/Globulin Ratio 1.6 (1.1-2.2); Bilirubin,Total 0.5 mg/dL (0.3-1.0); Calcium 8.5 mg/dL (8.6-10.3); Potassium 4.3 mEq/L (3.5-5.1); Total Protein 5.2 g/dL (6.4-8.9)
[2018-09-19] MEDS: Pantoprazole 40 MG VIAL IVP SCH (05:42)
[2018-09-19 05:53] LABS: Prothrombin Time 34.3 Seconds (9.4-12.1)
[2018-09-19 07:00] LABS: Hematocrit 25.3 % (37.5-50.1); Hemoglobin 7.9 g/dL (12.9-16.9)
[2018-09-19] MEDS: Insulin LISPRO 300 UNITS/3 ML VIAL SQ SCH ×2 (08:07→11:50)
[2018-09-19] MEDS: Cyanocobalamin (B-12) 1,000 MCG TABLET PO SCH (08:08)
[2018-09-19] MEDS: Metoprolol XL (24 HR) Succ 25 MG TAB.ER.24H PO SCH (08:08)
[2018-09-19] MEDS: Gabapentin 300 MG CAPSULE PO SCH (08:08)
[2018-09-19] MEDS: amLODIPine 5 MG TABLET PO SCH (08:08)
[2018-09-19] MEDS ORDERED: *HR* Phytonadione 5 MG TABLET PO ONE (11:12)
[2018-09-19 11:41] VITALS: BP 112/63
--- NOTE | 2018-09-19 14:54 | Discharge Summary ---
- NOTES TO OUTPATIENT PROVIDER Notes to Outpatient Provider: Patient was admitted to the hospital for GI bleed resulting from a Niya-De Los Santos tear and had a supratherapeutic INR. Patient was given a new prescription for omeprazole 40 mg for protection of GI tract. Please follow-up INR and CBC that patient will get checked on Tuesday 09/19. Currently the patient's warfarin has been held due to increased bleeding risk. Reassess if patient can be safely restarted on warfarin. Estimated PT Needs at Discharge: None Estimated OT Needs at Discharge: None Estimated ST Needs at Discharge: None PT Estimated DME Needs at D/C: None Date of Encounter: 09/19/18 Time of Encounter: 14:53 - Discharge Diagnosis (1) Gastrointestinal hemorrhage with hematemesis Priority: Primary Status: Acute (2) Supratherapeutic INR Priority: Secondary Status: Acute (3) Acute blood loss anemia Priority: Secondary Status: Acute (4) Hypertension Priority: Secondary Status: Chronic Qualifiers: Hypertension type: essential hypertension Qualified Code(s): I10 - Essential (primary) hypertension (5) DVT (deep venous thrombosis) Priority: Secondary Status: Chronic Qualifiers: Affected thrombotic vein of extremity: unspecified vein of extremity Chronicity: unspecified Laterality: unspecified laterality Qualified Code(s): I82.409 - Acute embolism and thrombosis of unspecified deep veins of unspecified lower extremity Hospital course: Sergio Garcia is a 68 year old man with hypertension, hyperlipidemia, TIAs and a left leg DVT on warfarin presented to the emergency room early this morning with mariel hematemesis stating that after he woke up in the morning he felt nauseated and vomited multiple times, seeing a significant amount of blood in the bathroom. He subsequently felt lightheaded and dizzy but did not pass out. He also became mildly dyspneic and with some abdominal pain but denied associated chest pain. There is no history of liver disease. In the ER he was found to have an elevated INR 9.9. He was started on pantoprazole and octreotide infusions. Blood transfusions were started and he received prothrombin complex concentrate for reversal of his INR urgently. He was seen by GI and taken for endoscopy where a linear Niya-De Los Santos tear was seen at the GE junction with no active bleeding. There was also dark coffee- ground fluid found in the gastric body. No interventions were performed and he was transferred to the floor. He received 2 units of blood. Since the EGD he has had no further hematemesis or hematochezia. Physical exam without chest tenderness or subcutaneous emphysema concerning for further tear or Boerhaave's. Hemoglobin remained stable following transfusion. INR was corrected from 9- 1.8. At discharge patient's hemoglobin is stable at 7.9. Warfarin has been held out of bleeding risk. Vitamin K was supplemented. Patient was instructed to follow up with primary care provider to discuss restarting his warfarin. Patient was instructed to follow up with a CBC and PT/INR on Wednesday. He was given a prescription for omeprazole for GI protection. Discharge discussed with: patient Time spent discussing smoking cessation with patient: 3 to 10 minutes - Time Spent with Patient Total time spent providing and/or coordinating discharge services: Time spent: Less than 30 minutes - Discharge Medications Prescriptions: New Omeprazole [PriLOSEC] 40 mg PO DAILY 14 Days #14 cap Continued Allopurinol [Zyloprim 300 MG] 300 mg PO DAILY Cyanocobalamin (Vitamin B-12) [Vitamin B-12] 1,000 mcg PO DAILY Duloxetine HCl [Cymbalta] 60 mg PO DAILY Metoprolol Succinate [Toprol Xl] 25 mg PO DAILY Gabapentin 600 mg PO DAILY Amlodipine Besylate 10 mg PO DAILY Ascorbic Acid [Vitamin C] 500 mg PO DAILY PRN PRN Reason: WHEN IRON IS TAKEN. Ferrous Sulfate 325 mg PO DAILY PRN PRN Reason: IRON SUPPLEMENT. Folic Acid 1 mg PO BID Meclizine [Antivert] 12.5 mg PO BID PRN PRN Reason: Dizziness Discontinued Warfarin [Coumadin] 5 mg PO DAILY Home Medications: Allopurinol [Zyloprim 300 MG] 300 mg PO DAILY 07/16/15 [History] Cyanocobalamin (Vitamin B-12) [Vitamin B-12] 1,000 mcg PO DAILY 03/07/18 [History] Duloxetine HCl [Cymbalta] 60 mg PO DAILY 06/23/18 [History] Gabapentin 600 mg PO DAILY 06/23/18 [History] Metoprolol Succinate [Toprol Xl] 25 mg PO DAILY 06/23/18 [History] Amlodipine Besylate 10 mg PO DAILY 09/18/18 [History] Ascorbic Acid [Vitamin C] 500 mg PO DAILY PRN 09/18/18 [History] Ferrous Sulfate 325 mg PO DAILY PRN 09/18/18 [History] Folic Acid 1 mg PO BID 09/18/18 [History] Meclizine [Antivert] 12.5 mg PO BID PRN 09/18/18 [History] Omeprazole [PriLOSEC] 40 mg PO DAILY 14 Days #14 cap 09/19/18 [Rx] Allergies/Adverse Reactions: Allergy/AdvReac Type Severity Reaction Status Date / Time No Known Allergies Allergy Verified 09/18/18 15:43 Date of admission: 09/17/18 15:37 Primary care physician: Per Arreola Consults: GI consulted. Discharging clinician: Felipe Carr Anticipated date of discharge: 09/19/18 - Constitutional Vitals: Temp Pulse Resp BP Pulse Ox 98.2 F 69 16 112/63 96 09/19/18 11:34 09/19/18 11:34 09/19/18 11:34 09/19/18 11:34 09/19/18 11:34 Exam: GEN: Well-appearing, NAD, conversant. HEAD: Normocephalic, atraumatic. EYES: PERRL, EOMI, anicteric. ENT: MMM. oropharynx without erythema or drainage. NECK: Supple. No LAD. No stiffness or restricted ROM. No tracheal deviation. No crepitus. HEART: Regular rate and regular rhythm, normal S1/S2, no m/r/g. No chest wall crepitus or tenderness. LUNGS: Good air exchange bilaterally, bibasilar lower lobe crackles, no wheezing. ABDO: Soft, nontender, nondistended with active bowel sounds. : No suprapubic tenderness or CVA tenderness. BACK: No obvious stepoffs or deformities. EXT: Without cyanosis, clubbing or edema. SKIN: Warm and dry without any rash. NEURO: Grossly nonfocal. Alert and oriented, moving all 4 extremities. CN not formally tested but appear grossly intact. Observed to ambulate with normal gait. PSYCH: Normal affect, no depressed or anxious mood. - Patient Status Disposition: Home, Self-Care Condition: Serious Functional capacity at discharge: independent ambulation Overall status at discharge: patient is progressing back to baseline - Ambulatory Orders Ambulatory Orders: Complete Blood Count [HEME] Time Frame: 2 Days, Location: Determined By Patient Prothrombin Time INR [COAG] Time Frame: 2 Days, Location: Determined By Patient - Discharge Instructions Instructions: Gastrointestinal Bleeding (DC) Follow Up With: Per Arreola [Primary Care Provider] - Additional Instructions: You have been admitted to the hospital for GI bleeding resulting from a Niya- De Los Santos tear. An EGD was performed that showed the tear, however no intervention was needed. Your INR was elevated during your initial admission. Your anticoagulation was reversed. Please do not take your warfarin. Please follow up at your coumadin clinic or PCP in the next week to discuss further management. Please also check a complete blood count and PT/INR on Wednesday to assess your bleeding risk. Please take your omeprazole 40 mg once a day to protect your stomach lining. Please follow up with your primary care provider within the next week to discuss your hospitalization and for further evaluation. Please return to the emergency department if you have worsening of your symptoms. Examples include, but are not limiting to, bleeding, fainting, vomiting blood, bloody or tarry stools, abdominal pain, nausea, vomiting. - Diet and Activity Activity: increase activity as tolerated, resume usual activities as tolerated Diet: diabetic diet - VTE Reasons for not Prescribing Prophylaxis: Medical contraindication
--- NOTE | 2018-09-22 14:36 | Electrocardiograph Report ---
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
== END 2018-09-19 16:13 | disposition home or self-care (01) | DRG 242 ==
LOC: EMEROOARM 10:03 → ICNU 15:37 → SUATTDRO 15:37 → ICNU 15:48 → 3ANU 17:59
PROVIDERS: ADMIT Internal Medicine; ATTEND Internal Medicine

== ENCOUNTER 2020-05-14 12:12 | Observation (INO) ==
[2020-05-14] MEDS ORDERED: Isovue-370 500 ML BOTTLE IVP ONE (12:28)
[2020-05-14 13:01] LABS: Basophils % 0.6 %; Eosinophils # 0.2 K/mcL (0.0-0.6); Hematocrit 38.8 % (37.5-50.1); Hemoglobin 11.9 g/dL (12.9-16.9); Immature Granulocytes % 0.3 % (0-4); Lymphocytes # 1.5 K/mcL (0.6-4.6); Mean Corpuscular HGB Conc 30.7 g/dL (31.6-35.5); Mean Corpuscular Hemoglobin 26.4 pg (28.0-33.3); Mean Platelet Volume 10.7 fL (9.4-12.4); Monocytes # 0.4 K/mcL (0.0-1.3); Monocytes % 6.6 %; Neutrophils # 4.5 K/mcL (1.6-8.9); Platelet Count 227 K/mcL (140-400); Red Blood Count 4.51 M/mcL (4.19-5.50); Segmented Neutrophils % 67.5 %; White Blood Count 6.7 K/mcL (4.3-11.1)
[2020-05-14 13:10] LABS: INR 1.2; Prothrombin Time 13.5 Seconds (9.4-12.1)
[2020-05-14 13:12] LABS: Activated Partial Thrombo Time 32.2 Seconds (26.0-36.0)
[2020-05-14 13:35] LABS: BUN/Creatinine Ratio 19 (6-26); Blood Urea Nitrogen 27 mg/dL (8-23); Calcium 9.4 mg/dL (8.6-10.3); Carbon Dioxide 26 mEq/L (23-29); Chloride 104 mEq/L (98-107); Glucose 178 mg/dL (70-105); Osmolality,Calculated 300 (280-300); Potassium 4.3 mEq/L (3.5-5.1); Sodium 140 mEq/L (136-145); Troponin I < 0.03 ng/mL (< 0.04); eGFR For African Americans > 60 (> 60); eGFR For Non-African Americans 50 (> 60)
[2020-05-14] MEDS ORDERED: Acetaminophen 325 MG TABLET PO PRN (15:32)
[2020-05-14] MEDS ORDERED: Naloxone 0.4 MG/ML INJ IVP PRN (15:32)
[2020-05-14] MEDS ORDERED: Perflutren Lipid Microsphere 1.3 ML in 0.9 % Sodium Chloride 8.7 ML IVP PRN (15:42)
[2020-05-14] MEDS: Pregabalin 75 MG CAPSULE PO SCH (19:49)
[2020-05-14] MEDS: Apixaban 5 MG TABLET PO SCH (19:49)
[2020-05-15 03:03] LABS: Basophils # 0.1 K/mcL (0.0-0.2); Basophils % 0.7 %; Eosinophils # 0.3 K/mcL (0.0-0.6); Eosinophils % 3.4 %; Hemoglobin 12.1 g/dL (12.9-16.9); Immature Granulocytes % 0.3 % (0-4); Lymphocytes # 1.5 K/mcL (0.6-4.6); Lymphocytes % 20.3 %; Mean Corpuscular Hemoglobin 26.8 pg (28.0-33.3); Mean Corpuscular Volume 86.3 fL (83.0-100.0); Mean Platelet Volume 10.6 fL (9.4-12.4); Monocytes # 0.6 K/mcL (0.0-1.3); Monocytes % 8.5 %; Platelet Count 228 K/mcL (140-400); Red Blood Count 4.52 M/mcL (4.19-5.50); Red Cell Distribution Width 15.1 % (11.5-14.5); Segmented Neutrophils % 66.8 %; White Blood Count 7.4 K/mcL (4.3-11.1)
[2020-05-15 03:23] LABS: Calcium 9.7 mg/dL (8.6-10.3); Magnesium 2.2 mg/dL (1.6-2.6); Potassium 4.8 mEq/L (3.5-5.1)
[2020-05-15] MEDS: Pregabalin 75 MG CAPSULE PO SCH (08:25)
[2020-05-15] MEDS: Apixaban 5 MG TABLET PO SCH (08:25)
[2020-05-15] MEDS ORDERED: allopurinoL 300 MG TABLET PO SCH (09:00)
[2020-05-15 11:32] VITALS: BP 176/90
== END 2020-05-15 15:41 | disposition home or self-care (01) ==
LOC: EMEROOARM 12:12 → 3BNU 12:12 → SUATTDRO 15:19 → 3BNU 16:01
PROVIDERS: ADMIT Internal Medicine; ATTEND Student in an Organized Health Care Education/Training Program

== ENCOUNTER 2021-07-13 17:17 | Inpatient (IN) ==
[2021-07-13] MEDS ORDERED: Isovue-370 500 ML BOTTLE IVP ONE (17:42)
[2021-07-13] MEDS ORDERED: Aspirin 325 MG TABLET PO ONE (17:43)
[2021-07-13 17:46] LABS: Basophils % 0.5 %; Eosinophils # 0.2 K/mcL (0.0-0.6); Hematocrit 36.1 % (37.5-50.1); Hemoglobin 11.4 g/dL (12.9-16.9); Immature Granulocytes % 0.2 % (0-4); Lymphocytes # 1.8 K/mcL (0.6-4.6); Lymphocytes % 22.8 %; Mean Corpuscular HGB Conc 31.6 g/dL (31.6-35.5); Mean Corpuscular Volume 88.7 fL (83.0-100.0); Mean Platelet Volume 10.8 fL (9.4-12.4); Monocytes # 0.8 K/mcL (0.0-1.3); Monocytes % 9.5 %; Neutrophils # 5.2 K/mcL (1.6-8.9); Platelet Count 196 K/mcL (140-400); Red Blood Count 4.07 M/mcL (4.19-5.50); Red Cell Distribution Width 15.1 % (11.5-14.5)
[2021-07-13 17:57] LABS: INR 1.2; Prothrombin Time 13.7 Seconds (9.4-12.1)
[2021-07-13 17:59] LABS: Activated Partial Thrombo Time 36.8 Seconds (26.0-36.0)
[2021-07-13 18:05] LABS: BUN/Creatinine Ratio 19 (6-26); Blood Urea Nitrogen 32 mg/dL (8-23); Calcium 9.2 mg/dL (8.6-10.3); Carbon Dioxide 26 mEq/L (23-29); Chloride 106 mEq/L (98-107); Glucose 74 mg/dL (70-105); Osmolality,Calculated 296 (280-300); Potassium 5.4 mEq/L (3.5-5.1); Sodium 140 mEq/L (136-145); Troponin I < 0.03 ng/mL (< 0.04); eGFR For African Americans 50 (> 60); eGFR For Non-African Americans 41 (> 60)
[2021-07-13] MEDS ORDERED: Furosemide 40 MG/4 ML VIAL IVP ONE (20:18)
[2021-07-13] MEDS ORDERED: *HR* Heparin 5,000 UNIT/ML VIAL IVP PRN ×2 (21:56)
[2021-07-13] MEDS: Heparin 25,000UNIT/250ML 1/2NS 25,000 UNIT/250 ML IV.SOLN IVC SCH (22:49)
[2021-07-13] MEDS ORDERED: Naloxone 0.4 MG/ML INJ IVP PRN (23:03)
[2021-07-13] MEDS ORDERED: Melatonin 3 MG TABLET PO PRN (23:03)
[2021-07-13] MEDS ORDERED: Ondansetron ODT 4 MG TAB.RAPDIS SL PRN (23:03)
[2021-07-13] MEDS ORDERED: Nitroglycerin 0.4 MG TAB.SUBL SL PRN (23:13)
[2021-07-14] MEDS ORDERED: Regadenoson 0.4 MG/5 ML SYRINGE IVP ONE (05:36)
[2021-07-14 06:41] LABS: Basophils # 0.1 K/mcL (0.0-0.2); Basophils % 0.7 %; Eosinophils # 0.3 K/mcL (0.0-0.6); Eosinophils % 4.2 %; Hematocrit 38.6 % (37.5-50.1); Hemoglobin 12.1 g/dL (12.9-16.9); Immature Granulocytes % 0.4 % (0-4); Lymphocytes # 1.7 K/mcL (0.6-4.6); Lymphocytes % 23.5 %; Mean Corpuscular HGB Conc 31.3 g/dL (31.6-35.5); Mean Corpuscular Hemoglobin 27.3 pg (28.0-33.3); Mean Corpuscular Volume 87.1 fL (83.0-100.0); Mean Platelet Volume 10.9 fL (9.4-12.4); Monocytes # 0.6 K/mcL (0.0-1.3); Monocytes % 7.9 %; Neutrophils # 4.7 K/mcL (1.6-8.9); Platelet Count 206 K/mcL (140-400); Red Blood Count 4.43 M/mcL (4.19-5.50); Red Cell Distribution Width 14.9 % (11.5-14.5); Segmented Neutrophils % 63.3 %; White Blood Count 7.4 K/mcL (4.3-11.1)
[2021-07-14 07:01] LABS: Alanine Aminotransferase 13 Units/L (7-52); Albumin 4.2 g/dL (3.5-5.7); Albumin/Globulin Ratio 1.7 (1.1-2.2); Alkaline Phosphatase 83 Units/L (34-104); Aspartate Amino Transferase 16 Units/L (13-39); BUN/Creatinine Ratio 21 (6-26); Bilirubin,Total 1.1 mg/dL (0.3-1.0); Blood Urea Nitrogen 32 mg/dL (8-23); Calcium 9.6 mg/dL (8.6-10.3); Carbon Dioxide 27 mEq/L (23-29); Chloride 106 mEq/L (98-107); Globulin 2.5 g/dL (2.4-3.5); Glucose 87 mg/dL (70-105); Magnesium 1.7 mg/dL (1.6-2.6); Osmolality,Calculated 296 (280-300); Phosphorous 3.9 mg/dL (2.7-4.5); Potassium 4.6 mEq/L (3.5-5.1); Sodium 140 mEq/L (136-145); Total Protein 6.7 g/dL (6.4-8.9); Troponin I < 0.03 ng/mL (< 0.04); eGFR For African Americans 54 (> 60); eGFR For Non-African Americans 45 (> 60)
[2021-07-14] MEDS: amLODIPine 5 MG TABLET PO SCH (10:19)
[2021-07-14] MEDS: Pregabalin 75 MG CAPSULE PO SCH ×2 (10:19→21:10)
[2021-07-14] MEDS ORDERED: Perflutren Lipid Microsphere 1.3 ML in 0.9 % Sodium Chloride 8.7 ML IVP PRN (12:14)
[2021-07-14] MEDS: Aspirin 81 MG TAB.CHEW PO SCH (15:25)
[2021-07-14] MEDS: Heparin 25,000UNIT/250ML 1/2NS 25,000 UNIT/250 ML IV.SOLN IVC SCH (21:10)
[2021-07-15 04:47] LABS: Basophils % 0.5 %; Eosinophils # 0.3 K/mcL (0.0-0.6); Eosinophils % 3.5 %; Hematocrit 38.7 % (37.5-50.1); Hemoglobin 12.1 g/dL (12.9-16.9); Immature Granulocytes % 0.4 % (0-4); Lymphocytes # 1.8 K/mcL (0.6-4.6); Lymphocytes % 22.6 %; Mean Corpuscular HGB Conc 31.3 g/dL (31.6-35.5); Mean Corpuscular Hemoglobin 27.6 pg (28.0-33.3); Mean Corpuscular Volume 88.2 fL (83.0-100.0); Mean Platelet Volume 11.5 fL (9.4-12.4); Monocytes # 0.7 K/mcL (0.0-1.3); Monocytes % 9.4 %; Neutrophils # 4.9 K/mcL (1.6-8.9); Platelet Count 210 K/mcL (140-400); Red Blood Count 4.39 M/mcL (4.19-5.50); Red Cell Distribution Width 14.8 % (11.5-14.5); Segmented Neutrophils % 63.6 %; White Blood Count 7.8 K/mcL (4.3-11.1)
[2021-07-15 04:57] LABS: Calcium 9.6 mg/dL (8.6-10.3); Potassium 4.6 mEq/L (3.5-5.1)
[2021-07-15] MEDS: Aspirin 81 MG TAB.CHEW PO SCH (08:25)
[2021-07-15] MEDS: Pregabalin 75 MG CAPSULE PO SCH ×2 (08:25→20:38)
[2021-07-15] MEDS: amLODIPine 5 MG TABLET PO SCH (08:25)
[2021-07-15 11:59] LABS: Prothrombin Time 11.6 Seconds (9.4-12.1)
[2021-07-15] MEDS ORDERED: Warfarin perPT PO PRN (18:00)
[2021-07-15] MEDS ORDERED: *HR* Warfarin 5 MG TABLET PO ONE (18:00)
[2021-07-15] MEDS: Heparin 25,000UNIT/250ML 1/2NS 25,000 UNIT/250 ML IV.SOLN IVC SCH (20:37)
[2021-07-15] MEDS ORDERED: rOPINIRole 1 MG TABLET PO SCH (21:00)
[2021-07-16 00:04] LABS: Bilirubin,Urine Negative (Negative); Blood,Urine Negative (Negative); Clarity,Urine Clear (Clear); Color,Urine Colorless (Yellow); Glucose,Urine (UA) Normal (Normal); Ketones,Urine Negative (Negative); Leukocyte Esterase,Urine Negative (Negative); Nitrite,Urine Negative (Negative); PH,Urine 6.5 pH Units (5.0-8.0); Protein,Urine Negative (Neg-Trace); Specific Gravity,Urine 1.015 (1.010-1.025); Urobilinogen,Urine Normal (Normal)
[2021-07-16 00:15] LABS: Protein/Creatinine Ratio,Urine 0.12 mg/mg (0.00-0.20)
[2021-07-16] MEDS ORDERED: *HR* LORazepam 2 MG/ML VIAL IVP ONE (01:40)
[2021-07-16 06:17] LABS: INR 1.1; Prothrombin Time 11.8 Seconds (9.4-12.1)
[2021-07-16 07:34] VITALS: PULSE 70
[2021-07-16] MEDS: Pregabalin 75 MG CAPSULE PO SCH (08:19)
[2021-07-16] MEDS: amLODIPine 5 MG TABLET PO SCH (08:19)
[2021-07-16] MEDS: Aspirin 81 MG TAB.CHEW PO SCH (08:20)
[2021-07-16] MEDS ORDERED: allopurinoL 300 MG TABLET PO SCH (09:00)
[2021-07-16 09:46] LABS: Calcium 9.9 mg/dL (8.6-10.3); Potassium 4.7 mEq/L (3.5-5.1)
[2021-07-16 12:07] VITALS: BP 126/66; TEMP 97.6; O2SAT 95
[2021-07-16] MEDS ORDERED: *HR* Warfarin 5 MG TABLET PO ONE (18:00)
[2021-07-18 10:16] LABS: ANA IgG by ELISA NONE DETECTED (None Detected)
== END 2021-07-16 13:45 | disposition home or self-care (01) | DRG 197 ==
LOC: EMEROOARM 17:17 → 2ANU 17:17
PROVIDERS: ADMIT Internal Medicine; ATTEND Internal Medicine